=== PATIENT | male | born 1950 | race Caucasian/White ===

== ENCOUNTER 2019-11-23 08:02 | Outpatient (AMBR) | payer OTHER, MEDICAID, SELFPAY ==
--- NOTE | 2019-11-23 08:19 | PTNOTE_ITS ---
PT OP Initial Eval Patient Information Visit Reasons: post op shoulder Rotator Cuff Repair Medical Diagnosis: S46.091D Treatment Dx #1: R shoulder pain Start of Care: 11/23/19 Date of Onset: 10/29/19 Initial Assessment Subjective Pt is 69 yr old male s/p R RCR about 3 weeks ago presents to therapy without sling. He lives with his and has difficulty with ADL's that require two hands and he is not actively lifting the arm. Pain level today is 6-7/10. PMH: HTN, OA, DM, smoker Imaging: in EMR Pt goal: to reach up without pain Objective R shoulder PROM: FF: 85 deg Abd: 78 deg Erot: 45 deg Strength: NT but estimated to be 3-/5 Assessment Pt presentation consistent with post op RCR with limited ROM, strength and OH reach. PROM is limited by capsular and myofascial tightness. Pt requires skilled therapy and will be progressed per protocol and has fair/good rehab potential. Eval followed by HEP and materials. Pt encouraged to wear sling multimedia coordinator per MD. Short Term and Case Management Social Worker Goals 1. Ind with HEP 2. Improved PROM/AAROM to 155 deg FF, 150 deg abduction, ER to 90 deg 3. Pt will transition to AROM by week 8 post op, FF to 150 deg, abduction to 140 deg, ER to 80 deg 4. Pt will reach OH to tall cabinets x10 Treatment Plan 1. Manual therapy 2 Therex 3. Modalities as indicated, MHP, ice, TENS Frequency and Duration 2x a week for 8 weeks Certification Dates: 11/23/19 to 02/22/20 Office Procedures PT Procedures PT Date of Service: 11/23/19 OP PT Eval Mod Complex 30 minutes: Yes
--- NOTE | 2019-11-27 13:20 | PT.ODAYNRPT ---
PT Outpatient Daily Note Date of Service: 11/27/19 OP Daily Note Visit Reasons: post op shoulder Rotator Cuff Repair Outpatient Physical Therapy Treatment Date: 11/27/19 Subjective: Pt c/o R shoulder popping with pain sometimes. Objective: See F/S for therex Assessment: Moderate tissue irritability from first resistance to end-range with AAROM therex today. Plan: Improve shoulder ROM Length of Time (minutes) of Treatment: 30 Minutes Office Procedures PT Procedures PT Date of Service: 11/23/19 OP PT Eval Mod Complex 30 minutes: Yes PT Procedures PT Date of Service: 11/27/19 Therapeutic Exercise 30 minutes: Yes
--- NOTE | 2019-11-29 14:18 | PT.ODAYNRPT ---
PT Outpatient Daily Note Date of Service: 11/29/19 OP Daily Note Visit Reasons: post op shoulder Rotator Cuff Repair Outpatient Physical Therapy Treatment Date: 11/29/19 Subjective: Pt c/o R shoulder popping with pain sometimes and increased pain today since last visit Objective: See F/S for therex Assessment: Increased issue irritability from first resistance to end-range with AAROM therex today. Plan: Improve shoulder ROM Length of Time (minutes) of Treatment: 30 Minutes Office Procedures PT Procedures PT Date of Service: 11/23/19 OP PT Eval Mod Complex 30 minutes: Yes PT Procedures PT Date of Service: 11/27/19 Therapeutic Exercise 30 minutes: Yes PT Procedures PT Date of Service: 11/29/19 Therapeutic Exercise 30 minutes: Yes
--- NOTE | 2019-12-03 15:55 | PT.ODAYNRPT ---
PT Outpatient Daily Note Date of Service: 12/03/19 OP Daily Note Visit Reasons: post op shoulder Rotator Cuff Repair Outpatient Physical Therapy Treatment Date: 12/03/19 Subjective: Pt c/o R shoulder increased pain today since last visit Objective: See F/S for therex P x5' Assessment: Increased issue irritability from first resistance to end-range with LISETH freitas today. Plan: Improve shoulder ROM Length of Time (minutes) of Treatment: 30 Minutes Office Procedures PT Procedures PT Date of Service: 11/23/19 OP PT Eval Mod Complex 30 minutes: Yes PT Procedures PT Date of Service: 11/27/19 Therapeutic Exercise 30 minutes: Yes PT Procedures PT Date of Service: 11/29/19 Therapeutic Exercise 30 minutes: Yes PT Procedures PT Date of Service: 12/03/19 Therapeutic Exercise 30 minutes: Yes
--- NOTE | 2019-12-05 18:43 | PT.ODAYNRPT ---
PT Outpatient Daily Note Date of Service: 12/05/19 OP Daily Note Visit Reasons: post op shoulder Rotator Cuff Repair Outpatient Physical Therapy Treatment Date: 12/05/19 Subjective: Pt c/o R shoulder increased pain today since last visit Objective: See F/S for therex P x5' Assessment: Increased issue irritability from first resistance to end-range with LISETH freitas today. Plan: Improve shoulder ROM Length of Time (minutes) of Treatment: 30 Minutes Office Procedures PT Procedures PT Date of Service: 11/23/19 OP PT Eval Mod Complex 30 minutes: Yes PT Procedures PT Date of Service: 11/27/19 Therapeutic Exercise 30 minutes: Yes PT Procedures PT Date of Service: 12/05/19 Therapeutic Exercise 30 minutes: Yes PT Procedures PT Date of Service: 11/29/19 Therapeutic Exercise 30 minutes: Yes PT Procedures PT Date of Service: 12/03/19 Therapeutic Exercise 30 minutes: Yes
--- NOTE | 2019-12-10 16:54 | PT.ODAYNRPT ---
PT Outpatient Daily Note Date of Service: 12/10/19 OP Daily Note Visit Reasons: post op shoulder Rotator Cuff Repair Outpatient Physical Therapy Treatment Date: 12/10/19 Subjective: Pt c/o R shoulder pain and soreness today similar to last visit Objective: See F/S for therex MHP x5' Assessment: Continued high issue irritability from first resistance to end-range with LISETH freitas today. Plan: Improve shoulder ROM Length of Time (minutes) of Treatment: 30 Minutes Office Procedures PT Procedures PT Date of Service: 11/23/19 OP PT Eval Mod Complex 30 minutes: Yes PT Procedures PT Date of Service: 11/27/19 Therapeutic Exercise 30 minutes: Yes PT Procedures PT Date of Service: 12/05/19 Therapeutic Exercise 30 minutes: Yes PT Procedures PT Date of Service: 12/10/19 Therapeutic Exercise 30 minutes: Yes PT Procedures PT Date of Service: 11/29/19 Therapeutic Exercise 30 minutes: Yes PT Procedures PT Date of Service: 12/03/19 Therapeutic Exercise 30 minutes: Yes
--- NOTE | 2019-12-12 13:21 | PT.ODAYNRPT ---
PT Outpatient Daily Note Date of Service: 12/12/19 OP Daily Note Visit Reasons: post op shoulder Rotator Cuff Repair Outpatient Physical Therapy Treatment Date: 12/12/19 Subjective: Pt c/o R shoulder pain and soreness today similar to last visit Objective: See F/S for therex ice x5' Assessment: Continued high issue irritability from first resistance to end-range with AAROM therex today especially into abduction. Plan: Improve shoulder ROM Length of Time (minutes) of Treatment: 30 Minutes Office Procedures PT Procedures PT Date of Service: 11/23/19 OP PT Eval Mod Complex 30 minutes: Yes PT Procedures PT Date of Service: 11/27/19 Therapeutic Exercise 30 minutes: Yes PT Procedures PT Date of Service: 12/05/19 Therapeutic Exercise 30 minutes: Yes PT Procedures PT Date of Service: 12/10/19 Therapeutic Exercise 30 minutes: Yes PT Procedures PT Date of Service: 12/12/19 Therapeutic Exercise 30 minutes: Yes PT Procedures PT Date of Service: 11/29/19 Therapeutic Exercise 30 minutes: Yes PT Procedures PT Date of Service: 12/03/19 Therapeutic Exercise 30 minutes: Yes
== END 2019-12-12 23:59 | disposition home or self-care (01) ==
PROVIDERS: PCP Family Medicine; Referring Provider Family Medicine; Visit Provider Orthopaedic Surgery
DX: S46.091D Other injury of muscle(s) and tendon(s) of the rotator cuff of right shoulder, subsequent encounter (principal); M25.511 Pain in right shoulder; I10 Essential (primary) hypertension; E11.9 Type 2 diabetes mellitus without complications; F17.200 Nicotine dependence, unspecified, uncomplicated; X58.XXXD Exposure to other specified factors, subsequent encounter
CPT/HCPCS: 97110; 97162

== ENCOUNTER 2019-12-18 11:32 | Outpatient (AMBR) | payer OTHER, MEDICAID, SELFPAY ==
--- NOTE | 2019-12-18 16:42 | PT.ODAYNRPT ---
PT Outpatient Daily Note Date of Service: 12/18/19 OP Daily Note Visit Reasons: post op shoulder Outpatient Physical Therapy Treatment Date: 12/18/19 Subjective: The shoulder is still pretty sore Objective: See F/S for therex MT: PPM into shoulder FF, abd and Erot x7' Assessment: PROM limited in capsular pattern consistent with adhesions/capsulitis. Pain limits motion from first resistance to end-range. Plan: Improve ROM Length of Time (minutes) of Treatment: 30 Minutes Office Procedures PT Procedures PT Date of Service: 12/18/19 Therapeutic Exercise 30 minutes: Yes
--- NOTE | 2019-12-20 11:57 | PTNOTE_ITS ---
PT Outpatient Daily Note Date of Service: 12/20/19 OP Daily Note Visit Reasons: post op shoulder Outpatient Physical Therapy Treatment Date: 12/20/19 Subjective: Continued shoulder soreness worse at night Objective: See F/S for therex Assessment: High tissue irritability with ROM limited in capsular pattern consistent with adaptive shortening and adhesive capsulitis s/p RCR. Plan: Improve ROM Length of Time (minutes) of Treatment: 30 Minutes Office Procedures PT Procedures PT Date of Service: 12/20/19 Therapeutic Exercise 30 minutes: Yes
== END 2020-01-12 23:59 | disposition home or self-care (01) ==
PROVIDERS: PCP Orthopaedic Surgery; Referring Provider Orthopaedic Surgery; Visit Provider Orthopaedic Surgery
DX: S46.091D Other injury of muscle(s) and tendon(s) of the rotator cuff of right shoulder, subsequent encounter (principal); M25.511 Pain in right shoulder; I10 Essential (primary) hypertension; E11.9 Type 2 diabetes mellitus without complications; F17.200 Nicotine dependence, unspecified, uncomplicated; X58.XXXD Exposure to other specified factors, subsequent encounter
CPT/HCPCS: 97110

== ENCOUNTER 2020-03-12 09:03 | Outpatient (AMBR) | payer OTHER, MEDICAID, SELFPAY ==
--- NOTE | 2020-02-28 13:12 | PT.OIERPT ---
PT OP Initial Eval Patient Information Visit Reasons: right shoulder Medical Diagnosis: Z01.818 Treatment Dx #1: Right Shoulder Pain Treatment Dx #2: Right Shoulder Mobility Deficits Start of Care: 02/28/20 Date of Onset: 02/27/20 Initial Assessment Subjective Pt is a 69 y/o male s/p right shoulder ASHLIE 02/27/20 secondary to frozen shoulder. Pt recently had a rotator cuff repair in October 2019. Pt was in therapy for a few sessions. Pt still has pain (7/10) with all activities. Pt has limitation with overhead motions, lifting, chores, cooking, cleaning, and performing normal ADLs. Objective Right Shoulder AROM Flexion: 120 deg Abduction: 50 deg ER and IR: unable due to pain Right Shoulder PROM Flexion: 150 deg Abduction: 130 deg External Rotation: 50 deg Internal Rotation: 30 deg Right Shoulder MMTs: grossly 3-/5 Right Scapula MMTs: grossly 3-/5 Assessment Pt demonstrate right shoulder mobility and strength deficits consistent with s/p shoulder ASHLIE leading to decline function. Pt will benefit from physical therapy to increase ROM, strength, and work on overall stability. Short Term and Rn Coronary Care Unit Goals 1) Increase right shoulder AROM WFL in 12 wks to be able to perform overhead motions 2) Increase right shoulder PROM WFL in 12 wks to be able to perform self care activities 3) Increase right shoulder MMTs grossly to 4-/5 in 12 wks to be able to perform chores 4) Increase right scapula MMTs grossly to 4-/5 in 12 wks to be able to perform recreational activities 5) Decrease shoulder pain to 2/10 in 12 wks to be able to perform lifting activities 6) Indep with HEP Treatment Plan 1) Manual Therapy 2) Therapeutic Activities 3) Therapeutic Exercises 4) Modalities (ice, heat) Frequency and Duration 2 x wk for 12 wks Certification Dates: 02/28/20 to 05/28/20 Office Procedures PT Procedures PT Date of Service: 02/28/20 OP PT Eval Mod Complex 30 minutes: Yes
--- NOTE | 2020-02-29 09:09 | PTNOTE_ITS ---
PT Outpatient Daily Note Date of Service: 02/29/2020 OP Daily Note Visit Reasons: right shoulder Outpatient Physical Therapy Treatment Date: 02/29/20 Subjective: pt states he has been moving his shoulder a lot at home. Objective: see flow sheet. Assessment: heat prior to treatment. noted his back extensions during his p ulleys and cued him to stay straight and focus on his shoulder stretch in which he was able to understand and correct. during his wand exercises in supine noted his ROM for BUE were the same. he understands and accepts the pain with treatment as he is determined to get better. ice pack post ther ex. Plan: continue POC per PT. Length of Time (minutes) of Treatment: 30 Minutes Office Procedures PT Procedures PT Date of Service: 02/28/20 OP PT Eval Mod Complex 30 minutes: Yes PT Procedures PT Date of Service: 02/29/20 Therapeutic Exercise 30 minutes: Yes
--- NOTE | 2020-03-04 11:31 | PT.ODAYNRPT ---
PT Outpatient Daily Note Date of Service: 03/04/20 OP Daily Note Visit Reasons: right shoulder Outpatient Physical Therapy Treatment Date: 03/04/20 Subjective: Pt mention that his shoulder is sore and has been stressed due to other reasons than his shoulder. Over the weekend it was really sore. Objective: Please see flow chart for list of ther ex performed Assessment: tolerate exercises; cues to relax with shoulder stretches. Noted improve shoulder AAROM in all plane after today's session Plan: Continue with PT Length of Time (minutes) of Treatment: 40 Minutes Office Procedures PT Procedures PT Date of Service: 02/28/20 OP PT Eval Mod Complex 30 minutes: Yes PT Procedures PT Date of Service: 02/29/20 Therapeutic Exercise 30 minutes: Yes PT Procedures PT Date of Service: 03/04/20 Therapeutic Exercise 45 minutes: Yes
--- NOTE | 2020-03-10 15:45 | PT.ODAYNRPT ---
PT Outpatient Daily Note Date of Service: 03/10/20 OP Daily Note Visit Reasons: right shoulder Outpatient Physical Therapy Treatment Date: 03/10/20 Subjective: Pt's shoulder feels better but still sore. Pt notice that reaching above shoulder height is getting easier Objective: Please see flow chart for list of ther ex performed Assessment: tolerate exercises with minimal pain Plan: Continue with PT Length of Time (minutes) of Treatment: 30 Minutes Office Procedures PT Procedures PT Date of Service: 02/28/20 OP PT Eval Mod Complex 30 minutes: Yes PT Procedures PT Date of Service: 02/29/20 Therapeutic Exercise 30 minutes: Yes PT Procedures PT Date of Service: 03/04/20 Therapeutic Exercise 45 minutes: Yes PT Procedures PT Date of Service: 03/10/20 Therapeutic Exercise 30 minutes: Yes
--- NOTE | 2020-03-12 10:46 | PT.ODAYNRPT ---
PT Outpatient Daily Note Date of Service: 03/02/20 OP Daily Note Visit Reasons: right shoulder Outpatient Physical Therapy Treatment Date: 03/12/20 Subjective: Pt's shoulder is sore and stiff. Pt feels that his shoulder is getting worse since max. Pt still notice same range but pain is more lately. Objective: Please see flow chart for list of ther ex performed Assessment: improved AAROM of the shoulder and educated that pain is part of the side effect of ASHLIE and medication wearing off from the ASHLIE procedure. Less guarded with stretching today and able to increase passive range after stretching. Plan: Continue with PT Length of Time (minutes) of Treatment: 30 Minutes Office Procedures PT Procedures PT Date of Service: 02/28/20 OP PT Eval Mod Complex 30 minutes: Yes PT Procedures PT Date of Service: 02/29/20 Therapeutic Exercise 30 minutes: Yes PT Procedures PT Date of Service: 03/04/20 Therapeutic Exercise 45 minutes: Yes PT Procedures PT Date of Service: 03/10/20 Therapeutic Exercise 30 minutes: Yes PT Procedures PT Date of Service: 03/12/20 Therapeutic Exercise 30 minutes: Yes
== END 2020-03-13 23:59 | disposition home or self-care (01) ==
PROVIDERS: PCP Orthopaedic Surgery; Referring Provider Orthopaedic Surgery; Visit Provider Orthopaedic Surgery
DX: Z98.890 Other specified postprocedural states (principal); M25.511 Pain in right shoulder
CPT/HCPCS: 97110; 97162

== ENCOUNTER → 2024-01-19 | Outpatient (CLI) | payer OTHER, MEDICAID, SELFPAY ==
[2024-01-19 16:51] LABS: Basophils % (Auto) 1 % (0-2.5); Eosinophils # (Auto) 0.3 Thou/mm3 (0.0-0.5); Eosinophils % (Auto) 5 % (0-10); Hematocrit 33.9 % (41.0-53.0); Hemoglobin 10.4 g/dL (13.5-16.0); Immature Granulocytes % (Auto) 1 % (0-0); Immature Granulocytes Auto 0.04 Thou/mm3 (0.00-0.00); Lymphocytes # (Auto) 1.5 Thou/mm3 (1.0-4.8); Lymphocytes % (Auto) 28 % (10-50); Mean Corpuscular HGB Conc 30.7 g/dl (31.0-37.0); Mean Corpuscular Hemoglobin 28.9 pg (25.0-35.0); Mean Corpuscular Volume 94 fL (80-100); Monocytes # (Auto) 1.1 Thou/mm3 (0.0-0.8); Monocytes % (Auto) 21 % (0-12); Neutrophils # (Auto) 2.4 Thou/mm3 (1.8-7.7); Neutrophils % (Auto) 45 % (37-80); Nucleated Red Blood Cell % 0 /100 WBC (0); Platelet Count 266 Thou/mm3 (140-440); White Blood Count 5.3 Thou/mm3 (3.8-10.6)
[2024-01-19 17:20] LABS: Anion Gap 3 (7-16); BUN/Creatinine Ratio 13 Ratio (12-20); Blood Urea Nitrogen 24 mg/dL (9-23); Calcium 9.2 mg/dL (8.3-10.6); Carbon Dioxide 29.8 mMol/L (20.0-31.0); Chloride 109 mMol/L (98-107); Creatinine (Component) 1.8 mg/dL (0.6-1.3); Glucose 83 mg/dL (74-106); Magnesium 2.1 mg/dL (1.6-2.6); Osmolality,Calculated 286 (275-295); Potassium 4.6 mMol/L (3.4-5.1); Sodium 142 mMol/L (136-145); eGFR 39 See Note
== END | disposition home or self-care (01) ==
LOC: COPL 15:42
PROVIDERS: PCP Family Medicine; Referring Provider Internal Medicine Cardiovascular Disease; Visit Provider Internal Medicine Cardiovascular Disease
DX: I48.0 Paroxysmal atrial fibrillation (principal); I50.22 Chronic systolic (congestive) heart failure
CPT/HCPCS: 36415; 80048; 83735; 85025

== ENCOUNTER → 2024-03-22 | Outpatient (CLI) | payer OTHER, MEDICAID, SELFPAY ==
[2024-03-22 13:28] LABS: Basophils % (Auto) 1 % (0-2.5); Eosinophils # (Auto) 0.2 Thou/mm3 (0.0-0.5); Eosinophils % (Auto) 3 % (0-10); Hematocrit 34.6 % (41.0-53.0); Hemoglobin 10.9 g/dL (13.5-16.0); Immature Granulocytes % (Auto) 1 % (0-0); Immature Granulocytes Auto 0.06 Thou/mm3 (0.00-0.00); Immature Reticulocyte Fraction 20.4 % (2.3-13.4); Lymphocytes # (Auto) 1.6 Thou/mm3 (1.0-4.8); Lymphocytes % (Auto) 26 % (10-50); Mean Corpuscular HGB Conc 31.5 g/dl (31.0-37.0); Mean Corpuscular Hemoglobin 28.7 pg (25.0-35.0); Mean Corpuscular Volume 91 fL (80-100); Monocytes % (Auto) 16 % (0-12); Neutrophils # (Auto) 3.3 Thou/mm3 (1.8-7.7); Neutrophils % (Auto) 54 % (37-80); Nucleated Red Blood Cell % 0 /100 WBC (0); Platelet Count 234 Thou/mm3 (140-440); RDW Standard Deviation 56.5 fL (35.1-43.9); Reticulocyte % (Auto) 1.3 % (0.5-1.5); Reticulocyte Absolute Auto 50.2 Biln/L (25.0-75.0); Reticulocyte Hgb Content 30.7 pg (28.0-35.0); White Blood Count 6.2 Thou/mm3 (3.8-10.6)
[2024-03-22 13:57] LABS: Ferritin 57 ng/mL (10.5-307.3); Total Iron Binding Capacity 354 mcg/dL (250-425)
[2024-03-22 14:09] LABS: Iron 76 mcg/dL (65-175); Percent Iron Saturation 21 % (20-55); Unsaturated Iron Binding 278 (225-295)
== END | disposition home or self-care (01) ==
LOC: COPL 12:54
PROVIDERS: PCP Family Medicine; Referring Provider Specialist; Visit Provider Specialist
DX: D50.0 Iron deficiency anemia secondary to blood loss (chronic) (principal)
CPT/HCPCS: 36415; 82728; 83540; 83550; 85025; 85046

== ENCOUNTER → 2024-04-19 | Outpatient (CLI) | payer OTHER, MEDICAID, SELFPAY ==
[2024-04-19 15:14] LABS: Amphetamine/Methamp Scrn,U Negative (Negative); Barbiturate Screen,Urine Negative (Negative); Benzodiazepines Screen,Urine Negative (Negative); Benzoylecgonine Screen, Ur Negative (Negative); Fentanyl Screen,Urine Negative (Negative); Opiate Screen,Urine Positive (Negative); THC Screen,Urine Negative (Negative)
== END | disposition home or self-care (01) ==
LOC: COPL 13:50 → SLDO 13:50
PROVIDERS: Referring Provider Family Medicine; Visit Provider Family Medicine
DX: Z79.891 Long term (current) use of opiate analgesic (principal)
CPT/HCPCS: 80307

== ENCOUNTER → 2024-06-18 | Outpatient (CLI) | payer OTHER, MEDICAID, SELFPAY ==
[2024-06-18 11:20] LABS: Basophils % (Auto) 1 % (0-2.5); Eosinophils # (Auto) 0.1 Thou/mm3 (0.0-0.5); Eosinophils % (Auto) 1 % (0-10); Hematocrit 34.4 % (41.0-53.0); Hemoglobin 10.8 g/dL (13.5-16.0); Immature Granulocytes % (Auto) 2 % (0-0); Immature Granulocytes Auto 0.12 Thou/mm3 (0.00-0.00); Lymphocytes # (Auto) 1.6 Thou/mm3 (1.0-4.8); Lymphocytes % (Auto) 25 % (10-50); Mean Corpuscular HGB Conc 31.4 g/dl (31.0-37.0); Mean Corpuscular Hemoglobin 29.6 pg (25.0-35.0); Mean Corpuscular Volume 94 fL (80-100); Monocytes # (Auto) 0.7 Thou/mm3 (0.0-0.8); Monocytes % (Auto) 12 % (0-12); Neutrophils # (Auto) 3.8 Thou/mm3 (1.8-7.7); Neutrophils % (Auto) 60 % (37-80); Nucleated Red Blood Cell % 0 /100 WBC (0); Platelet Count 236 Thou/mm3 (140-440); RDW Standard Deviation 59.7 fL (35.1-43.9); Red Blood Count 3.65 Miln/mm3 (4.50-5.90); White Blood Count 6.4 Thou/mm3 (3.8-10.6)
[2024-06-18 11:40] LABS: Sed Rate (ESR) 21 mm/hr (0-20)
[2024-06-18 12:30] LABS: Uric Acid 10.2 mg/dL (3.7-9.2)
== END | disposition home or self-care (01) ==
PROVIDERS: PCP Family Medicine; Referring Provider Family Medicine; Visit Provider Family Medicine
DX: E11.65 Type 2 diabetes mellitus with hyperglycemia (principal)
CPT/HCPCS: 36415; 84550; 85025; 85652

== ENCOUNTER → 2024-07-19 | Outpatient (CLI) | payer OTHER, MEDICAID, SELFPAY ==
[2024-07-19 11:01] LABS: Basophils # (Auto) 0.1 Thou/mm3 (0.0-0.2); Basophils % (Auto) 1 % (0-2.5); Eosinophils # (Auto) 0.1 Thou/mm3 (0.0-0.5); Eosinophils % (Auto) 2 % (0-10); Hematocrit 37.8 % (41.0-53.0); Hemoglobin 11.8 g/dL (13.5-16.0); Immature Granulocytes % (Auto) 1 % (0-0); Immature Granulocytes Auto 0.05 Thou/mm3 (0.00-0.00); Lymphocytes # (Auto) 1.4 Thou/mm3 (1.0-4.8); Lymphocytes % (Auto) 21 % (10-50); Mean Corpuscular HGB Conc 31.2 g/dl (31.0-37.0); Mean Corpuscular Hemoglobin 29.8 pg (25.0-35.0); Mean Corpuscular Volume 96 fL (80-100); Monocytes # (Auto) 1.1 Thou/mm3 (0.0-0.8); Monocytes % (Auto) 16 % (0-12); Neutrophils # (Auto) 4.2 Thou/mm3 (1.8-7.7); Neutrophils % (Auto) 61 % (37-80); Nucleated Red Blood Cell % 0 /100 WBC (0); Platelet Count 219 Thou/mm3 (140-440); RDW Standard Deviation 61.5 fL (35.1-43.9); Red Blood Count 3.96 Miln/mm3 (4.50-5.90)
== END | disposition home or self-care (01) ==
PROVIDERS: PCP Family Medicine; Referring Provider Specialist; Visit Provider Specialist
DX: D50.0 Iron deficiency anemia secondary to blood loss (chronic) (principal)
CPT/HCPCS: 36415; 85025

== ENCOUNTER → 2024-07-26 | Outpatient (CLI) | payer OTHER, MEDICAID, SELFPAY ==
[2024-07-26 11:33] LABS: Uric Acid 10.4 mg/dL (3.7-9.2)
== END | disposition home or self-care (01) ==
PROVIDERS: PCP Family Medicine; Referring Provider Family Medicine; Visit Provider Family Medicine
DX: E79.0 Hyperuricemia without signs of inflammatory arthritis and tophaceous disease (principal)
CPT/HCPCS: 36415; 84550

== ENCOUNTER → 2024-08-28 | Outpatient (CLI) | payer OTHER, MEDICAID, SELFPAY ==
[2024-08-28 09:57] LABS: Anion Gap 7 (7-16); BUN/Creatinine Ratio 12 Ratio (12-20); Blood Urea Nitrogen 21 mg/dL (9-23); Calcium 8.8 mg/dL (8.3-10.6); Carbon Dioxide 30.6 mMol/L (20.0-31.0); Chloride 108 mMol/L (98-107); Creatinine (Component) 1.8 mg/dL (0.6-1.3); Glucose 189 mg/dL (74-106); Magnesium 1.7 mg/dL (1.6-2.6); Osmolality,Calculated 298 (275-295); Potassium 4.3 mMol/L (3.4-5.1); Sodium 146 mMol/L (136-145); eGFR 39 See Note
[2024-08-28 09:59] LABS: Amphetamine/Methamp Scrn,U Negative (Negative); Barbiturate Screen,Urine Negative (Negative); Benzodiazepines Screen,Urine Negative (Negative); Benzoylecgonine Screen, Ur Negative (Negative); Fentanyl Screen,Urine Negative (Negative); Opiate Screen,Urine Positive (Negative); THC Screen,Urine Negative (Negative)
== END | disposition home or self-care (01) ==
LOC: COPL 08:52
PROVIDERS: PCP Family Medicine; Referring Provider Internal Medicine Cardiovascular Disease; Visit Provider Family Medicine
DX: M47.26 Other spondylosis with radiculopathy, lumbar region (principal); J44.1 Chronic obstructive pulmonary disease with (acute) exacerbation; I50.20 Unspecified systolic (congestive) heart failure
CPT/HCPCS: 36415; 80048; 80307; 83735

== ENCOUNTER → 2024-10-23 | Outpatient (CLI) | payer OTHER, MEDICAID, SELFPAY ==
[2024-10-23 11:33] LABS: Basophils # (Auto) 0.0 Thou/mm3 (0.0-0.2); Basophils % (Auto) 1 % (0-2.5); Eosinophils # (Auto) 0.2 Thou/mm3 (0.0-0.5); Eosinophils % (Auto) 3 % (0-10); Hematocrit 37.1 % (41.0-53.0); Hemoglobin 11.6 g/dL (13.5-16.0); Immature Granulocytes Auto 0.01 Thou/mm3 (0.00-0.00); Lymphocytes # (Auto) 1.5 Thou/mm3 (1.0-4.8); Lymphocytes % (Auto) 28 % (10-50); Mean Corpuscular HGB Conc 31.3 g/dl (31.0-37.0); Mean Corpuscular Hemoglobin 30.4 pg (25.0-35.0); Mean Corpuscular Volume 97 fL (80-100); Monocytes # (Auto) 0.7 Thou/mm3 (0.0-0.8); Monocytes % (Auto) 14 % (0-12); Neutrophils # (Auto) 3.0 Thou/mm3 (1.8-7.7); Neutrophils % (Auto) 55 % (37-80); Nucleated Red Blood Cell # 0.00 Thou/mm3 (0.00-0.00); Nucleated Red Blood Cell % 0 /100 WBC (0); Platelet Count 201 Thou/mm3 (140-440); RDW Standard Deviation 57.0 fL (35.1-43.9); Red Blood Count 3.82 Miln/mm3 (4.50-5.90); White Blood Count 5.4 Thou/mm3 (3.8-10.6)
== END | disposition home or self-care (01) ==
LOC: COPL 11:01
PROVIDERS: PCP Family Medicine; Referring Provider Specialist; Visit Provider Specialist
DX: D50.0 Iron deficiency anemia secondary to blood loss (chronic) (principal)
CPT/HCPCS: 36415; 85025

== ENCOUNTER → 2024-12-21 | Outpatient (CLI) | payer OTHER, MEDICAID, SELFPAY ==
[2024-12-21 11:33] LABS: Basophils # (Auto) 0.1 Thou/mm3 (0.0-0.2); Basophils % (Auto) 1 % (0-2.5); Eosinophils # (Auto) 0.3 Thou/mm3 (0.0-0.5); Eosinophils % (Auto) 5 % (0-10); Hematocrit 36.8 % (41.0-53.0); Hemoglobin 11.3 g/dL (13.5-16.0); Immature Granulocytes Auto 0.05 Thou/mm3 (0.00-0.00); Lymphocytes # (Auto) 1.3 Thou/mm3 (1.0-4.8); Lymphocytes % (Auto) 23 % (10-50); Mean Corpuscular HGB Conc 30.7 g/dl (31.0-37.0); Mean Corpuscular Hemoglobin 29.7 pg (25.0-35.0); Mean Corpuscular Volume 97 fL (80-100); Monocytes # (Auto) 0.7 Thou/mm3 (0.0-0.8); Monocytes % (Auto) 12 % (0-12); Neutrophils # (Auto) 3.4 Thou/mm3 (1.8-7.7); Neutrophils % (Auto) 59 % (37-80); Nucleated Red Blood Cell # 0.00 Thou/mm3 (0.00-0.00); Nucleated Red Blood Cell % 0 /100 WBC (0); Platelet Count 233 Thou/mm3 (140-440); RDW Standard Deviation 61.0 fL (35.1-43.9); Red Blood Count 3.81 Miln/mm3 (4.50-5.90); White Blood Count 5.8 Thou/mm3 (3.8-10.6)
== END | disposition home or self-care (01) ==
LOC: COPL 10:11
PROVIDERS: PCP Family Medicine; Referring Provider Specialist; Visit Provider Specialist
DX: D50.0 Iron deficiency anemia secondary to blood loss (chronic) (principal)
CPT/HCPCS: 36415; 85025

== ENCOUNTER → 2024-12-28 | Outpatient (CLI) | payer OTHER, MEDICAID, SELFPAY ==
[2024-12-28 12:26] LABS: Amphetamine/Methamp Scrn,U Negative (Negative); Barbiturate Screen,Urine Negative (Negative); Benzodiazepines Screen,Urine Negative (Negative); Benzoylecgonine Screen, Ur Negative (Negative); Fentanyl Screen,Urine Negative (Negative); Opiate Screen,Urine Positive (Negative); THC Screen,Urine Negative (Negative)
== END | disposition home or self-care (01) ==
LOC: SLDO 11:03
PROVIDERS: PCP Family Medicine; Referring Provider Family Medicine; Visit Provider Family Medicine
DX: M19.90 Unspecified osteoarthritis, unspecified site (principal); M25.512 Pain in left shoulder
CPT/HCPCS: 80307

== ENCOUNTER 2025-02-01 14:28 | Inpatient (IN) | payer OTHER, MEDICAID, MEDICARE, SELFPAY ==
[2025-02-01] VITALS (9 sets, daily range): BP systolic 136–177; BP diastolic 67–89; PULSE 36–94; RESP 14–24; TEMP 36.2–37.4; O2SAT 94–97; BMI 42.3
--- NOTE | 2025-02-01 15:11 | EKG_ITS ---
[facility] Test Date: 2025-02-01 Pat Name: FELIPE DE LEON Department: Room: - Gender: Male Stitcher Utility: : 1950 Requested By: Blas Garcia Order Number: [id number] Reading MD: Blas Garcia Measurements Intervals [place] Rate: 58 P: 64 [place]: 203 QRS: -46 QRSD: 169 T: 68 QT: 442 QTc: 437 Interpretive Statements SINUS BRADYCARDIA WITH OCCASIONAL VENTRICULAR PREMATURE COMPLEXES LEFT AXIS DEVIATION [QRS AXIS < -30] LEFT BUNDLE BRANCH BLOCK [120+ ms QRS DURATION, 80+ ms Q/S IN V1/V2, 85+ ms R IN I/aVL/V5/V6] Compared to ECG 10/26/2023 09:48:20 Ventricular premature complex(es) now present Left-axis deviation now present /store/S0/[id number]/ecg/[id number].pdf
--- NOTE | 2025-02-01 15:13 | XR_ITS ---
Examination: CT brain head without contrast. 2-D sagittal coronal reconstructions Date and time of exam: February 01, 2025, 1524 hours INDICATIONS: Onset dizziness beginning this morning CTDI: vol (mGy): 61.6 DLP: (mGycm): 1209 Technique: Multiple CT axial sections of the brain have been obtained, 5 mm slice thickness. Contrast has not been administered. 2-D sagittal, coronal reconstructions have been obtained Low dose protocols were performed. One or more of the following dose reduction techniques were used; automated exposure control, adjustment of the mA and/or KV according to patient size, use of iterative reconstruction technique. Findings: No significant ventricular enlargement. Intra-axial or extra-axial hemorrhage density is not seen. No mass effect or midline shift Basal cisterns are not remarkable. Fourth ventricle is midline. Cranial vault intact. Impression: Negative for acute hemorrhage, mass effect or midline shift
--- NOTE | 2025-02-01 15:13 | XR_ITS ---
EXAMINATION: PA chest single view TECHNIQUE: Upright PA chest single view Date and time: February 01, 2025, 1532 hours INDICATIONS: Chest pain today. FINDINGS: Mild prominence left ventricle Mild prominent central pulmonary vasculature. No lobar pneumonia or pulmonary edema. Moderate osteopenia IMPRESSION: Mild prominence central pulmonary vasculature
--- NOTE | 2025-02-01 15:14 | PD.EDRME ---
Rapid Medical Screening Exam E Arrival date/time: 02/01/25 14:28 74-year-old male with a history of hypertension, A-fib, COPD presents to the emergency room with a chief complaint of dizziness and lightheadedness x 2 days I have greeted and performed a focused initial assessment of this patient. A comprehensive ED assessment and evaluation of the patient, analysis of all test results, and completion of the medical decision making process will be conducted by additional ED providers. Chief Complaint: Dizziness Time Seen by Provider: 02/01/25 14:47 Vital signs: Vital Signs Temperature 98.5 F 02/01/25 14:47 Pulse Rate 62 02/01/25 14:47 Respiratory Rate 18 02/01/25 14:47 Blood Pressure 155/83 H 02/01/25 14:47 Pulse Oximetry (%) 96 02/01/25 14:47 Oxygen Delivery Method Room Air 02/01/25 14:47 Vital signs reviewed by provider: Yes Exam: Clear bilateral lung sounds Regular rhythm S1 and S2 GCS of 15 Clinical Impression: A-fib/anemia/vertigo
[2025-02-01 15:52] LABS: Collection Type, Urine Clean Catch; WBC,Urine 0 /hpf (0-5)
[2025-02-01 15:57] LABS: Basophils # (Auto) 0.0 Thou/mm3 (0.0-0.2); Basophils % (Auto) 0 % (0-2.5); Eosinophils # (Auto) 0.0 Thou/mm3 (0.0-0.5); Eosinophils % (Auto) 1 % (0-10); Hematocrit 38.2 % (41.0-53.0); Hemoglobin 11.7 g/dL (13.5-16.0); Immature Granulocytes Auto 0.02 Thou/mm3 (0.00-0.00); Lymphocytes # (Auto) 1.1 Thou/mm3 (1.0-4.8); Lymphocytes % (Auto) 19 % (10-50); Mean Corpuscular HGB Conc 30.6 g/dl (31.0-37.0); Mean Corpuscular Hemoglobin 29.3 pg (25.0-35.0); Mean Corpuscular Volume 96 fL (80-100); Monocytes # (Auto) 0.7 Thou/mm3 (0.0-0.8); Monocytes % (Auto) 12 % (0-12); Neutrophils # (Auto) 4.0 Thou/mm3 (1.8-7.7); Neutrophils % (Auto) 68 % (37-80); Nucleated Red Blood Cell # 0.00 Thou/mm3 (0.00-0.00); Nucleated Red Blood Cell % 0 /100 WBC (0); Platelet Count 228 Thou/mm3 (140-440); RDW Standard Deviation 59.7 fL (35.1-43.9); Red Blood Count 4.00 Miln/mm3 (4.50-5.90); White Blood Count 5.8 Thou/mm3 (3.8-10.6)
[2025-02-01 16:02] LABS: Bilirubin,Urine Negative (Negative); Blood,Urine Negative (Negative); Clarity,Urine Clear (Clear/Hazy); Color,Urine Lt-Yellow (Lt Yel-Yel); Culture Indicated,Urine Not Indicated; Glucose, Urine Negative (Negative); Ketones,Urine Negative (Negative); Leukocyte Esterase,Urine Negative (Negative); Nitrite,Urine Negative (Negative); PH,Urine 7.0 (5.0-7.0); Protein,Urine Trace (Neg - Trace); RBC,Urine 2 /hpf (0-3); Specific Gravity,Urine 1.018 (1.001-1.035); Squamous Epithelial Cell,Urine < 1 /hpf (0-5); Urobilinogen,Urine Negative mg/dL (0.0-1.0)
[2025-02-01 16:09] LABS: Amphetamine/Methamp Scrn,U Negative (Negative); Barbiturate Screen,Urine Negative (Negative); Benzodiazepines Screen,Urine Negative (Negative); Benzoylecgonine Screen, Ur Negative (Negative); Fentanyl Screen,Urine Negative (Negative); Opiate Screen,Urine Positive (Negative); THC Screen,Urine Negative (Negative)
[2025-02-01 16:10] LABS: INR 1.0 (0.9-1.3); Partial Thromboplastin Time 29.3 Seconds (22.0-36.0); Prothrombin Time 10.3 Seconds (9.0-12.2)
[2025-02-01 16:12] LABS: B-Type Natriuretic Peptide 260 pg/mL (0-100)
[2025-02-01 16:20] LABS: Alanine Aminotransferase 15 U/L (10-49); Albumin, Serum 4.9 gm/dL (3.4-4.8); Albumin/Globulin Ratio 2.0 (1.2-2.2); Alkaline Phosphatase 68 U/L (46-116); Anion Gap 8 (7-16); Aspartate Amino Transferase 17 U/L (0-34); BUN/Creatinine Ratio 14 Ratio (12-20); Bilirubin,Total 0.9 mg/dL (0.3-1.2); Blood Urea Nitrogen 22 mg/dL (9-23); Calcium 9.4 mg/dL (8.3-10.6); Calcium (Corrected) 9.4 mg/dL (8.5-10.1); Carbon Dioxide 28.0 mMol/L (20.0-31.0); Chloride 107 mMol/L (98-107); Creatinine (Component) 1.6 mg/dL (0.6-1.3); Estimated Creatinine Clearance 55.8 mL/min (>60); Free T4 (Free Thyroxine) 1.34 ng/dL (0.89-1.76); Globulin 2.4 gm/dL (2.3-3.5); Glucose 118 mg/dL (74-106); Magnesium 1.9 mg/dL (1.6-2.6); Osmolality,Calculated 289 (275-295); Potassium 5.2 mMol/L (3.4-5.1); Sodium 143 mMol/L (136-145); Thyroid Stimulating Hormone 2.57 uIU/mL (0.55-4.78); Total Protein 7.3 gm/dL (5.7-8.2); eGFR 45 See Note
--- NOTE | 2025-02-01 16:22 | PRELIM_ITS ---
CT scan of the head without intravenous contrast (axial sections with sagittal and coronal reformats) February 01, 2025 1524 hours Clinical history: dizziness Comparison: No prior study is available for comparison. Findings: There is no evidence of intracranial hemorrhage, mass effect or midline shift. There are periventricular white matter hypodensities, compatible with chronic small vessel ischemia. There is mild volume loss. The calvarium is unremarkable. The mastoid air cells and the visualized paranasal sinuses are clear. Impression: No evidence of intracranial hemorrhage, mass effect or midline shift. Periventricular chronic small vessel ischemia and volume loss. Report Electronically Signed By: Alvaro Bowen 02/01/2025 4:21:59 PM [EST]
[2025-02-01 16:27] LABS: Troponin I 0.103 ng/mL (0.0-0.045)
--- NOTE | 2025-02-01 16:49 | EDNOTE_ITS ---
ED Dizzyness RME/HPI General Chief Complaint: Dizziness Stated Complaint: DIZZINESS, AND SOB Time Seen by Provider: 02/01/25 14:47 Arrival date/time: 02/01/25 14:28 RME / HPI RME / HPI Narrative: 02/01/25 14:28 74-year-old male with a history of hypertension, A-fib, COPD presents to the emergency room with a chief complaint of dizziness and lightheadedness x 2 days I have greeted and performed a focused initial assessment of this patient. A comprehensive ED assessment and evaluation of the patient, analysis of all test results, and completion of the medical decision making process will be conducted by additional ED providers. DR. DINH MAIN ED EVALUATION 74 year old male with history of hypertension, diabetes, hyperlipidemia, asthma presents to the ED for evaluation of dizziness beginning after waking at 07:00 AM today. States as he tried to get out of bed he noted the room was spinning. States he got up to walk to the restroom and I was falling all over the place . States after using the restroom he took his medications where shortly after he vomited. Patient additionally complains of cold sweats, nausea, vomiting, feeling short of breath, and substernal chest pain. Patient mentioned last night he ate a pot a beans and went to bed with some abdominal discomfort. Exam: Clear bilateral lung sounds Regular rhythm S1 and S2 GCS of 15 Impression: A-fib/anemia/vertigo Related Data Home Medications ?Medication ?Instructions ?Recorded ?Confirmed furosemide 40 mg tablet 40 mg PO QDAY ##30 02/04/14 02/26/20 albuterol sulfate 90 mcg/actuation 2 puff inhalation Q 4HR PRN Wheezing 04/20/18 02/26/20 aerosol inhaler (Ventolin HFA) benazepril 40 mg tablet 40 mg PO QDAY 04/20/1810/09 pravastatin 40 mg tablet 40 mg PO QDAY 04/20/1810/09 pantoprazole 40 mg tablet,delayed 40 mg PO QDAY 10/10/23 release hydrocodone 5 mg-acetaminophen 325 1 tab PO Q6H PRN Pa in 10/10/23 10/10/23 mg tablet Previous Rx's ?Medication ?Instructions ?Recorded zolpidem 10 mg tablet (Ambien) 5 mg (1/2 x 10 mg) PO H S PRN Sleep 10/11/23 14 days #0 tabs apixaban 5 mg tablet 5 mg PO BID #60 tabs 4 dapagliflozin propanediol 5 mg 10 mg (2 x 5 mg) PO QAM #60 tabs 10/14/23 tablet metformin 1,000 mg tablet 500 mg (1/2 x 1,000 mg) PO B ID 30 10/14/23 days #60 tabs Allergies Allergy/AdvReac Type Severity Reaction Status Date / Time No Known Allergies Allergy Verified 02/01/25 14:31 Review of Systems Review of Systems Systems Reviewed: All systems reviewed, normal except as documented Past Medical History Past Medical History CARDIAC: Positive Cardiac Disorders, Hypercholesterolemia, Aneurysm and Hypertension RESPIRATORY: Positive Asthma, Smoking and Tobacco Use GASTROINTESTINAL: Positive Gastrointestinal Disorders, Hepatitis (hep b), Ulcer, Hiatal Hernia (TAKES MED) and Gastroesophageal Reflux Disease GENITOURINARY: Positive Genitourinary Disorders, Kidney Stones (NO EDNA) and Benign Prostatic Hyperplasia MUSCULOSKELETAL: Positive Musculoskeletal Disorders (muscle weakness), Arthritis, Degenerative Disk Disease and Fractures (right knee with surgery) ENT: Positive Cataracts ENDOCRINE: Positive Endocrine Disorders and Diabetes Mellitus Type 2 HEMATOLOGIC: Positive Blood Disorders and Anemia (TAKES IRON) OTHER HISTORY: Positive Measles Family History FAMILY HISTORY: Positive Family Cardiac Disorders and Family Surgery (FATHER,MOTHER,BROTHER,SISTER) Surgical History SURGICAL: Positive Eye Surgery (cataract), Joint Replacement, Amputation (LEFT POINTER FINGER UPPER) and Vasectomy Social History SMOKING STATUS: Never smoker SUBSTANCE USE: does not use ED Exam Narrative Physical exam: Constitutional: Awake, alert, nontoxic, no acute distress HEENT: Normocephalic, atraumatic, extraocular movements intact. Neck: Supple CV: Regular rate and rhythm, no murmurs/rubs/gallops, no chest tenderness Lungs: Clear to auscultation BL, no respiratory distress. Abd: Soft, epigastric tenderness to palpation, ND, no HSM noted to palpation Extremities: No deformities, mild swelling to bilateral lower extremities Neuro: AAOx3, CN 2-12 GIBL, no acute neuro deficit noted. Skin: Warm, dry, intact Course Course Course Narrative: 1719h: I spoke with hospitalist team C for admission. Quality Measures none Orders Category Date Time Status Admit to Inpatient Status Routine Admission 02/01/25 17:23 Active Patient Condition Routine Admission 02/01/25 17:23 Ordered Bedside Blood Glucose ACHS Care 02/01/25 17:58 Active Bedside COVID-19 Antigen Test NOW Care 02/01/25 18:12 Active COVID-19 Screening Questionnaire NOW Care 02/01/25 17:19 Active Account Advisor now Care 02/01/25 18:03 Active Continuous Pulse Oximetry QSHIFT Care 02/01/25 18:03 Active Decision to Admit X1 Care 02/01/25 17:18 Completed EKG (ED ONLY) *Do not use* NOW Care 02/01/25 15:11 Completed MRI Screening NOW Care 02/01/25 18:05 Active NPO NOW Care 02/01/25 17:24 Active Neuro Check Q4H Care 02/01/25 18:04 Active Notify provider NEEDED Care 02/01/25 17:23 Active Notify provider NEEDED Care 02/01/25 18:03 Active Nurse Swallow Screen x1 Care 02/01/25 18:03 Active Diet NPO (NOW) Diet 02/01/25 17:24 Active CA echo doppler complete Stat Exams 02/01/25 17:[address] head/brain wo con Stat Exams 02/01/25 15:13 Taken EKG (ED Only) Stat Exams 02/01/25 15:11 Draft MR head/brain w con Stat Exams 02/01/25 Ordered XR chest 1V portable Stat Exams 02/01/25 15:13 Taken A1C [Glycohemoglobin w (eAG)] AM DRAW Lab 02/02/25 05:00 Ordered B-Type Natriuretic Peptide Stat Lab 02/01/25 15:33 Completed CBC AM DRAW Lab 02/02/25 05:00 Ordered CBC AM DRAW Lab 02/03/25 05:00 Ordered CBC AM DRAW Lab 02/04/25 05:00 Ordered CBC Stat Lab 02/01/25 15:33 Completed Comprehensive Metabolic Panel AM DRAW Lab 02/02/25 05:00 Ordered Comprehensive Metabolic Panel AM DRAW Lab 02/03/25 05:00 Ordered Comprehensive Metabolic Panel AM DRAW Lab 02/04/25 05:00 Ordered Comprehensive Metabolic Panel Stat Lab 02/01/25 15:33 Completed Drug Screen,Urine Stat Lab 02/01/25 15:45 Completed Free T4 (Free Thyroxine) Stat Lab 02/01/25 15:33 Completed Lipid Panel AM DRAW Lab 02/02/25 05:00 Ordered Magnesium AM DRAW Lab 02/02/25 05:00 Ordered Magnesium Stat Lab 02/01/25 15:33 Completed Partial Thromboplastin Time Stat Lab 02/01/25 15:33 Completed Phosphorous AM DRAW Lab 02/02/25 05:00 Ordered Prothrombin Time with INR Stat Lab 02/01/25 15:33 Completed Renal Function Panel Stat Lab 02/01/25 17:43 Completed TSH [Thyroid Stimulating Hormone] Stat Lab 02/01/25 15:33 Completed Troponin I Stat Lab 02/01/25 15:33 Completed Troponin I Stat Lab 02/01/25 17:43 Completed Urinalysis, C/S if Indicated Stat Lab 02/01/25 15:45 Completed Acetaminophen Tab [Tylenol Tab] Med 02/01/25 17:23 Active 650 mg PO Q6H PRN Apixaban [Eliquis] Med 02/01/25 21:00 Active 5 mg PO BID Aspirin Chew Med 02/01/25 17:10 Discontinued 324 mg PO X1 ONE Aspirin [Ecotrin] Med 02/02/25 09:00 Active 81 mg PO DAILY Atorvastatin Calcium [Lipitor] Med 02/01/25 18:00 Active 10 mg PO DAILY Dextrose 50% Syr [D50w Syringe Abboject] Med 02/01/25 17:58 Active 25 ml IV Q15MIN PRN Dextrose 50% Syr [D50w Syringe Abboject] Med 02/01/25 17:58 Active 50 ml IV Q15MIN PRN Enoxaparin [Lovenox] Med 02/01/25 17:10 Discontinued 100 mg SC X1 ONE Enoxaparin [Lovenox] Med 02/02/25 09:00 Discontinued 40 mg SC QDAY Glucagon Inj Med 02/01/25 17:58 Active 1 mg IM Q15MIN PRN INSULIN LISPRO (AdmeLOG) [HumaLOG] Med 02/02/25 07:30 Active See Protocol SC AC Ondansetron Inj [Zofran Inj] Med 02/01/25 18:03 Active 4 mg IVP Q4HR PRN Code Status Routine Oth 02/01/25 17:23 Ordered EKG (RT) Stat RT 02/01/25 17:26 Ordered Oxygen Delivery NOW RT 02/01/25 18:03 Active Oxygen Delivery PRN RT 02/01/25 17:23 Active Referral Supervisor Pipelines NOW 02/01/25 18:03 Active Vital Signs Vital signs: Vital Signs Temperature 98.5 F 02/01/25 14:47 Pulse Rate 62 02/01/25 14:47 Respiratory Rate 18 02/01/25 14:47 Blood Pressure 155/83 H 02/01/25 14:47 Pulse Oximetry (%) 96 02/01/25 14:47 Oxygen Delivery Method Room Air 02/01/25 14:47 Pulse ox is 96% on room air which is adequate. Dizziness MDM Narrative MDM Narrative:: Eugenia Sawant am scribing for and in the presence of Dr. Dinh. Patient data External records reviewed:: [facility] previous records Clinical information provided by:: patient Social determinants that could affect healthcare access:: none Patient has the following chronic illnesses:: hypertension, diabetes, hyperlipidemia and asthma How is presenting disease/condition affected by chronic disease/condition?: exacerbated by Evaluation data The following diagnostics were reviewed and interpreted by me:: lab results, radiology exam(s) and EKG tracing(s) (EKG @ 15:11h, interpreted by me, sinus bradycardia with occasional PACs, left axis deviation, no STEMI. ) Lab and/or radiology exams considered but not ordered:: None Interpretation Summary: Ordering Physician: Date of Service: Procedure(s): Accession Number(s): cc: ~ CT scan of the head without intravenous contrast (axial sections with sagittal and coronal reformats) February 01, 2025 1524 hours Clinical history: dizziness Comparison: No prior study is available for comparison. Findings: There is no evidence of intracranial hemorrhage, mass effect or midline shift. There are periventricular white matter hypodensities, compatible with chronic small vessel ischemia. There is mild volume loss. The calvarium is unremarkable. The mastoid air cells and the visualized paranasal sinuses are clear. Impression: No evidence of intracranial hemorrhage, mass effect or midline shift. Periventricular chronic small vessel ischemia and volume loss. Report Electronically Signed By: Alvaro Bowen 02/01/2025 4:21:59 PM [EST] Medications / Prescriptions Medications or Prescriptions considered but not ordered:: None Medication administrations:: Medication Administration History Acetaminophen (Acetaminophen 325 Mg Tablet) 650 mg PO Q6H PRN PRN Reason: Fever >101.5 Stop: 03/03/25 17:22 Apixaban (Apixaban 2.5 Mg Tablet) 5 mg PO BID [facility] Stop: 03/04/25 09:00 Aspirin (Aspirin Ec 81 Mg Tabec) 81 mg PO DAILY [facility] Stop: 03/04/25 08:59 Atorvastatin Calcium (Atorvastatin Calcium 10 Mg Tablet) 10 mg PO DAILY [facility] Stop: 03/03/25 17:59 Dextrose (Dextrose 50%-Water Inj 50 Ml Syringe) 25 ml IV Q15MIN PRN PRN Reason: BG 50-70 responsive npo pt Stop: 03/03/25 17:57 Dextrose (Dextrose 50%-Water Inj 50 Ml Syringe) 50 ml IV Q15MIN PRN PRN Reason: BG <50 OR BG <70 & pt unresponsive Stop: 03/03/25 17:57 Glucagon (Glucagon Inj 1 Mg Vial) 1 mg IM Q15MIN PRN PRN Reason: BG <70, and no IV access Insulin Human Lispro (Insulin Lispro (Admelog) 1 Unit/0.01 Ml Unit) 0 unit SC AC [facility]; Protocol Stop: 03/04/25 07:29 Ondansetron HCl (Ondansetron Inj 2 Mg/Ml Inj 2 Ml) 4 mg IVP Q4HR PRN PRN Reason: NAUSEA OR VOMITING Stop: 03/03/25 18:02 Discontinued Medications Aspirin (Aspirin 81 Mg Chew) 324 mg PO X1 ONE Stop: 02/01/25 17:11 Last Admin: 02/01/25 17:18 Dose: 324 mg Documented By: VL Enoxaparin Sodium (Enoxaparin Sod Inj 100 Mg/Ml Syringe) 100 mg SC X1 ONE Stop: 02/01/25 17:11 Last Admin: 02/01/25 17:18 Dose: 100 mg Documented By: VL Enoxaparin Sodium (Enoxaparin Sod Inj 40 Mg/0.4 Ml Syringe) 40 mg SC QDAY [facility] Stop: 02/16/25 08:59 See above Consultations Consultation(s) initiated? (list below): Yes Diagnosis Dizziness Differential Diagnosis: benign paroxysmal positional vertigo, orthostatic hypotension, vertebral basilar insufficiency, cerebrovascular accident and transient cerebral ischemia Most likely diagnosis given after review of the tests above:: NSTEMI Admission Indicated Admission indicated?: indicated Admission Request Was there a request for admission?: Yes Admission Attestation Admission request attestation: Discussed case with [] from Hospitalist service regarding admission. Discussed patients ED course, exam findings, labs, and radiology results. The Hospitalist [agrees,declines] to accept the patient for admission. Disposition Plan Disposition Plan: Admit Critical Care Time Critical Care Time Total Critical Care Time (min.): 32 Attestation: The high probability of a clinically significant, sudden or life threatening deterioration required my full and direct attention, intervention and personal management. The aggregate critical care time was [32] minutes. This time is in addition to time spent performing reported procedures but includes the following: [x] Data Review and interpretation [x] Patient assessment and monitoring of vital signs [x] Documentation [x] Medication orders and management Discharge Plan Plan Patient Disposition: Admit Acute Care w/in Hospital Prescriptions/Referrals Prescriptions/Med Rec: No Action furosemide 40 MG tablet 40 mg PO QDAY Qty: 30 pravastatin 40 mg Tablet 40 mg PO QDAY benazepril 40 mg Tablet 40 mg PO QDAY albuterol sulfate [Ventolin HFA] 90 mcg/actuation Hfa Aerosol Inhaler 2 puff INHALATION Q4HR PRN (Reason: Wheezing) pantoprazole 40 mg Tablet,Delayed Release (Dr/Ec) 40 mg PO QDAY hydrocodone-acetaminophen 5-325 mg Tablet 1 tab PO Q6H PRN (Reason: Pain) zolpidem [Ambien] 10 mg Tablet 5 mg PO HS PRN (Reason: Sleep) 14 Days Qty: 0 0RF dapagliflozin propanediol 5 mg Tablet 10 mg PO QAM Qty: 60 0RF metformin 1,000 mg Tablet 500 mg PO BID 30 Days Qty: 60 0RF apixaban 5 mg tablet 5 mg PO BID Qty: 60 0RF Problem List Clinical Impression: Non-ST elevation AR (NSTEMI) Patient/Caregiver Discharge Instructions Print Language: Korean Stand Alone Forms: [facility] Award Info., Patient Portal Info Letter
[2025-02-01] MEDS: ENOXAPARIN SOD INJ 100 MG/ML SYRINGE SC (17:18)
[2025-02-01] MEDS: ASPIRIN 81 MG CHEW 324 MG PO (17:18)
--- NOTE | 2025-02-01 17:26 | EKG_ITS ---
[facility] Test Date: 2025-02-01 Pat Name: FELIPE DE LEON Department: Room: - Gender: Male [employer] Associate: : 1950 Requested By: Rafiq Mauro Order Number: [id number] Reading MD: Rafiq Mauro Measurements Intervals [place] Rate: 63 P: 38 MD: 209 QRS: -43 QRSD: 169 T: 76 QT: 446 QTc: 460 Interpretive Statements SINUS RHYTHM LEFT AXIS DEVIATION [QRS AXIS < -30] LEFT BUNDLE BRANCH BLOCK [120+ ms QRS DURATION, 80+ ms Q/S IN V1/V2, 85+ ms R IN I/aVL/V5/V6] Compared to ECG 02/01/2025 15:11:44 Sinus bradycardia no longer present Ventricular premature complex(es) no longer present /store/S0/[id number]/ecg/[id number].pdf
--- NOTE | 2025-02-01 17:54 | ESHP_ITS ---
<Statement entered by Surinder Ansari MD - 02/12/25 08:31> I reviewed above note and agree with findings and plans. I have also personally examined the patient with medicine team and went over assessment and plan with medical team including college intern and resident physician. Documentation for date of: 02/01/25 [facility] History of Present Illness History of present illness: HPI: 74-year-old male with a past medical history of hypertension, diabetes, hyperlipidemia and asthma who presented to the ED on 02/01/2025 with dizziness, shortness of breath, and vision changes. Earlier in the day the patient endorsed blurry vision, chest pressure, felt dizzy, and had an episode of vomiting and an episode of diarrhea. Patient has never had these symptoms before. He had no focal neurological deficits on initial examination. He was found to have an elevated troponin. Patient was admitted for elevated troponins and stroke rule out. ED course: * Significant vitals: BP 155/83. * Significant labs: Troponin 0.103, BNP 260. * Imaging: EKG significant for left bundle branch block, no acute ST segment changes.. CT head and chest x-ray performed, both pending read. * Patient was given one-time dose of aspirin 325 mg p.o. and enoxaparin 100 mg subcutaneously. History: * Past medical history: As stated above in HPI * Surgical history: Per the patient, several miscellaneous surgeries, nothing recent * Social history: Denies smoking * Allergies: No known drug allergies Home medications: * Albuterol, apixaban, benazepril, dapagliflozin, furosemide, hydrocodone, metformin, pantoprazole, pravastatin, zolpidem CODE STATUS: Full code Review of Systems Review of Systems Narrative Review of Systems: Review of Systems: * General: Denies fevers, chills. * HEENT: Admits to blurry vision. Admits to dizziness. Denies headache, congestion, or sore throat. * Cardiac: Endorses chest heaviness, shortness of breath, denies chest pain or palpitations. * Pulmonary: Denies shortness of breath or cough. * GI: 1 episode of vomiting, 1 episode of diarrhea. Denies, melena, or hematochezia. * : Denies dysuria, hematuria, frequency, or urgency. * MSK: Denies pain in the extremities, joints, or myalgias. * Neuro: Denies weakness, numbness, or speech difficulty. Exam Vital Signs Temp Pulse Resp BP Pulse Ox O2 Del Method 98.5 F 72 19 172/89 H 95 Room Air 02/01/25 17:06 02/01/25 17:06 02/01/25 17:06 02/01/25 17:06 02/01/25 17:06 02/01/25 17:06 Narrative Exam General: Obese man. Awake and in no acute distress. Conversational and non- toxic appearing. Neurologic: GCS 15. Alert and oriented x3, no gross neurological deficit, and patient able to move all 4 extremities. HEENT: Normocephalic, atraumatic, mucous membranes moist. Pupils reactive to light. Heart: Regular rate and rhythm, normal S1 and S2, no murmurs. Lungs: Clear to auscultation bilaterally with no wheezing or crackles. Abdomen: Soft, nondistended, nontender, positive bowel sounds. No guarding or rebound tenderness. Extremities: No edema. 2+ radial and dorsalis pedis pulses bilaterally. Skin: Warm. Dry. No rash or ecchymoses. Results: Labs 02/02/25 05:42 02/02/25 05:42 Labs: Short CBC 02/01/25 Range/Units 15:33 WBC 5.8 (3.8-10.6) Thou/mm3 Hgb 11.7 L (13.5-16.0) g/dL Hct 38.2 L (41.0-53.0) % Plt Count 228 (140-440) Thou/mm3 BMP 02/01/25 15:33 Sodium 143 Potassium 5.2 H Chloride 107 Carbon Dioxide 28.0 BUN 22 Creatinine 1.6 H Glucose 118 H Calcium 9.4 Cardiac Enzymes 02/01/25 Range/Units 15:33 Troponin I 0.103 H* (0.0-0.045) ng/mL Liver Function 02/01/25 Range/Units 15:33 Total Bilirubin 0.9 (0.3-1.2) mg/dL AST 17 (0-34) U/L ALT 15 (10-49) U/L Alkaline Phosphatase 68 (46-116) U/L Albumin 4.9 H (3.4-4.8) gm/dL Urine 02/01/25 Range/Units 15:45 Urine Color Lt-Yellow (Lt Yel-Yel) Urine Clarity Clear (Clear/Hazy) Urine pH 7.0 (5.0-7.0) Ur Specific [place] 1.018 (1.001-1.035) Urine Protein Trace (Neg - Trace) Urine Glucose (UA) Negative (Negative) Quality Measures Quality Measures none Advance care planning discussed with:: patient Medications Home Medications and Allergies Home Medications ?Medication ?Instructions ?Recorded ?Confirmed ?Type furosemide 40 mg tablet 40 mg PO QDAY ##30 02/04/14 02/02/25 History albuterol sulfate 90 mcg/actuation 2 puff inhalation Q 4HR PRN Wheezing 04/20/18 02/02/25 History aerosol inhaler (Ventolin HFA) benazepril 40 mg tablet 40 mg PO QDAY 04/20/1802/02 History pravastatin 40 mg tablet 40 mg PO QDAY 04/20/1802/02 History pantoprazole 40 mg tablet,delayed 40 mg PO QDAY 02/02/25 History release hydrocodone 5 mg-acetaminophen 325 1 tab PO Q6H PRN Pa in 10/10/23 02/02/25 History mg tablet bumetanide 1 mg tablet 1 mg PO QDAY 02/02/25 History carvedilol 3.125 mg tablet 3.125 mg PO BID 02/02/25 History febuxostat 80 mg tablet 80 mg PO QDAY 02/02/2502/02 History gabapentin 300 mg capsule 300 mg PO TID 02/02/2502/02 History sacubitril 49 mg-valsartan 51 mg 49.51 tab PO BID 01/1302/02/25 History tablet (Entresto) Allergies Allergy/AdvReac Type Severity Reaction Status Date / Time No Known Allergies Allergy Verified 02/01/25 14:31 Visit Medications Acetaminophen (Acetaminophen 325 Mg Tablet) 650 mg PO Q6H PRN PRN Reason: Fever >101.5 Stop: 03/03/25 17:22 Enoxaparin Sodium (Enoxaparin Sod Inj 40 Mg/0.4 Ml Syringe) 40 mg SC QDAY ARTURO Stop: 02/16/25 08:59 Discontinued Medications Aspirin (Aspirin 81 Mg Chew) 324 mg PO X1 ONE Stop: 02/01/25 17:11 Last Admin: 02/01/25 17:18 Dose: 324 mg Enoxaparin Sodium (Enoxaparin Sod Inj 100 Mg/Ml Syringe) 100 mg SC X1 ONE Stop: 02/01/25 17:11 Last Admin: 02/01/25 17:18 Dose: 100 mg Assessment & Plan Plan Summary: 74-year-old male with a past medical history of hypertension, diabetes, hyperlipidemia and asthma who presented to the ED on 02/01/2025 with dizziness shortness of breath, and vision changes. Was found to have an elevated troponin and a left bundle branch block. He was admitted for elevated troponins and stroke rule out. #Elevated troponins #Left bundle branch block #NSTEMI type II * Troponins 0.103 on arrival, up trended to 0.106 * EKG showed left bundle branch block, no acute ST segment changes. LBBB appears old * Patient had chest heaviness and shortness of breath the day of presentation, he denied chest pain Plan: * Will trend troponins * Will repeat EKG * Echo ordered #Dizziness secondary to #Benign positional vertigo versus #TIA versus #CVA * Patient endorsed vision changes and dizziness prior to presentation, has since resolved * Consider TIA, vertigo * Tele neurology was not consulted by ER given patient was out of window Plan: * MRI ordered * CT head read pending * Started aspirin and Plavix * N.p.o., aspiration precautions * Neurochecks every 4 hours #Hypertension Stage 2 * Patient takes Benazepril, Metoprolol at home Plan: * Pending med rec, consider restarting home meds #Heart failure EF 35-40% * Patient takes benazepril, entresto, furosemide at home * Patient does not appear to be fluid overloaded on exam, negative for crackles on auscultation, negative peripheral edema Plan: * Pending med rec, consider restarting home medications * Echo ordered * As needed labetalol #MAUREEN on CKD? * Cr 1.6 on arrival, similar values in the past Plan: * No direct intervention for now #Hyperlipidemia * Patient takes pravastatin at home Plan: * Pending lipid panel and med rec #Asthma * Patient uses rescue inhaler at home Plan: * Pending med rec * Monitor for shortness of breath, DuoNebs if needed #Caz-dtwxlic-[id number] diabetes mellitus * Patient takes metformin 500 mg at home Plan: * Pending med rec * Insulin sliding scale Hospital Maintenance: DVT ppx: Aspirin, Eliquis Diet: N.p.o., pending swallow screen IV lines: Peripheral Code status: Full code Dispo: Telemetry monitoring floor, trending troponins, pending MRI, pending CT head read. Patient was seen and discussed with my attending physician Dr. Elan STEVENS. Rafiq Mauro DO PGY-1.
--- NOTE | 2025-02-01 17:54 | PD.RESHP ---
Documentation for date of: 02/01/25 [facility] History of Present Illness History of present illness: HPI: 74-year-old male with a past medical history of hypertension, diabetes, hyperlipidemia and asthma who presented to the ED on 02/01/2025 with dizziness, shortness of breath, and vision changes. Earlier in the day the patient endorsed blurry vision, chest pressure, felt dizzy, and had an episode of vomiting and an episode of diarrhea. Patient has never had these symptoms before. He had no focal neurological deficits on initial examination. He was found to have an elevated troponin. Patient was admitted for elevated troponins and stroke rule out. ED course: Significant vitals: BP 155/83. Significant labs: Troponin 0.103, BNP 260. Imaging: EKG significant for left bundle branch block, no acute ST segment changes.. CT head and chest x-ray performed, both pending read. Patient was given one-time dose of aspirin 325 mg p.o. and enoxaparin 100 mg subcutaneously. History: Past medical history: As stated above in HPI Surgical history: Per the patient, several miscellaneous surgeries, nothing recent Social history: Denies smoking Allergies: No known drug allergies Home medications: Albuterol, apixaban, benazepril, dapagliflozin, furosemide, hydrocodone, metformin, pantoprazole, pravastatin, zolpidem CODE STATUS: Full code Review of Systems Review of Systems Narrative Review of Systems: Review of Systems: General: Denies fevers, chills. HEENT: Admits to blurry vision. Admits to dizziness. Denies headache, congestion, or sore throat. Cardiac: Endorses chest heaviness, shortness of breath, denies chest pain or palpitations. Pulmonary: Denies shortness of breath or cough. GI: 1 episode of vomiting, 1 episode of diarrhea. Denies, melena, or hematochezia. : Denies dysuria, hematuria, frequency, or urgency. MSK: Denies pain in the extremities, joints, or myalgias. Neuro: Denies weakness, numbness, or speech difficulty. Exam Vital Signs Temp Pulse Resp BP Pulse Ox O2 Del Method 98.5 F 72 19 172/89 H 95 Room Air 02/01/25 17:06 02/01/25 17:06 02/01/25 17:06 02/01/25 17:06 02/01/25 17:06 02/01/25 17:06 Narrative Exam General: Obese man. Awake and in no acute distress. Conversational and non-toxic appearing. Neurologic: GCS 15. Alert and oriented x3, no gross neurological deficit, and patient able to move all 4 extremities. HEENT: Normocephalic, atraumatic, mucous membranes moist. Pupils reactive to light. Heart: Regular rate and rhythm, normal S1 and S2, no murmurs. Lungs: Clear to auscultation bilaterally with no wheezing or crackles. Abdomen: Soft, nondistended, nontender, positive bowel sounds. No guarding or rebound tenderness. Extremities: No edema. 2+ radial and dorsalis pedis pulses bilaterally. Skin: Warm. Dry. No rash or ecchymoses. Results: Labs 02/02/25 05:42 02/02/25 05:42 Labs: Short CBC 02/01/25 Range/Units 15:33 WBC 5.8 (3.8-10.6) Thou/mm3 Hgb 11.7 L (13.5-16.0) g/dL Hct 38.2 L (41.0-53.0) % Plt Count 228 (140-440) Thou/mm3 BMP 02/01/25 15:33 Sodium 143 Potassium 5.2 H Chloride 107 Carbon Dioxide 28.0 BUN 22 Creatinine 1.6 H Glucose 118 H Calcium 9.4 Cardiac Enzymes 02/01/25 Range/Units 15:33 Troponin I 0.103 H* (0.0-0.045) ng/mL Liver Function 02/01/25 Range/Units 15:33 Total Bilirubin 0.9 (0.3-1.2) mg/dL AST 17 (0-34) U/L ALT 15 (10-49) U/L Alkaline Phosphatase 68 (46-116) U/L Albumin 4.9 H (3.4-4.8) gm/dL Urine 02/01/25 Range/Units 15:45 Urine Color Lt-Yellow (Lt Yel-Yel) Urine Clarity Clear (Clear/Hazy) Urine pH 7.0 (5.0-7.0) Ur Specific [place] 1.018 (1.001-1.035) Urine Protein Trace (Neg - Trace) Urine Glucose (UA) Negative (Negative) Quality Measures Quality Measures none Advance care planning discussed with:: patient Medications Home Medications and Allergies Home Medications ?Medication ?Instructions ?Recorded ?Confirmed ?Type furosemide 40 mg tablet 40 mg PO QDAY ##30 02/04/14 02/02/25 History albuterol sulfate 90 mcg/actuation 2 puff inhalation Q4HR PRN Wheezing 04/20/18 02/02/25 History aerosol inhaler (Ventolin HFA) benazepril 40 mg tablet 40 mg PO QDAY 04/20/18 02/02/25 History pravastatin 40 mg tablet 40 mg PO QDAY 04/20/18 02/02/25 History pantoprazole 40 mg tablet,delayed 40 mg PO QDAY 10/26/19 02/02/25 History release hydrocodone 5 mg-acetaminophen 325 1 tab PO Q6H PRN Pain 10/10/23 02/02/25 History mg tablet bumetanide 1 mg tablet 1 mg PO QDAY 02/02/25 02/02/25 History carvedilol 3.125 mg tablet 3.125 mg PO BID 02/02/25 02/02/25 History febuxostat 80 mg tablet 80 mg PO QDAY 02/02/25 02/02/25 History gabapentin 300 mg capsule 300 mg PO TID 02/02/25 02/02/25 History sacubitril 49 mg-valsartan 51 mg 49.51 tab PO BID 02/02/25 02/02/25 History tablet (Entresto) Allergies Allergy/AdvReac Type Severity Reaction Status Date / Time No Known Allergies Allergy Verified 02/01/25 14:31 Visit Medications Acetaminophen (Acetaminophen 325 Mg Tablet) 650 mg PO Q6H PRN PRN Reason: Fever >101.5 Stop: 03/03/25 17:22 Enoxaparin Sodium (Enoxaparin Sod Inj 40 Mg/0.4 Ml Syringe) 40 mg SC QDAY ARTURO Stop: 02/16/25 08:59 Discontinued Medications Aspirin (Aspirin 81 Mg Chew) 324 mg PO X1 ONE Stop: 02/01/25 17:11 Last Admin: 02/01/25 17:18 Dose: 324 mg Enoxaparin Sodium (Enoxaparin Sod Inj 100 Mg/Ml Syringe) 100 mg SC X1 ONE Stop: 02/01/25 17:11 Last Admin: 02/01/25 17:18 Dose: 100 mg Assessment & Plan Plan Summary: 74-year-old male with a past medical history of hypertension, diabetes, hyperlipidemia and asthma who presented to the ED on 02/01/2025 with dizziness shortness of breath, and vision changes. Was found to have an elevated troponin and a left bundle branch block. He was admitted for elevated troponins and stroke rule out. #Elevated troponins #Left bundle branch block #NSTEMI type II Troponins 0.103 on arrival, up trended to 0.106 EKG showed left bundle branch block, no acute ST segment changes. LBBB appears old Patient had chest heaviness and shortness of breath the day of presentation, he denied chest pain Plan: Will trend troponins Will repeat EKG Echo ordered #Dizziness secondary to #Benign positional vertigo versus #TIA versus #CVA Patient endorsed vision changes and dizziness prior to presentation, has since resolved Consider TIA, vertigo Tele neurology was not consulted by ER given patient was out of window Plan: MRI ordered CT head read pending Started aspirin and Plavix N.p.o., aspiration precautions Neurochecks every 4 hours #Hypertension Stage 2 Patient takes Benazepril, Metoprolol at home Plan: Pending med rec, consider restarting home meds #Heart failure EF 35-40% Patient takes benazepril, entresto, furosemide at home Patient does not appear to be fluid overloaded on exam, negative for crackles on auscultation, negative peripheral edema Plan: Pending med rec, consider restarting home medications Echo ordered As needed labetalol #MAUREEN on CKD? Cr 1.6 on arrival, similar values in the past Plan: No direct intervention for now #Hyperlipidemia Patient takes pravastatin at home Plan: Pending lipid panel and med rec #Asthma Patient uses rescue inhaler at home Plan: Pending med rec Monitor for shortness of breath, DuoNebs if needed #Wwp-fkpwicg-gxcljlndu diabetes mellitus Patient takes metformin 500 mg at home Plan: Pending med rec Insulin sliding scale Hospital Maintenance: DVT ppx: Aspirin, Eliquis Diet: N.p.o., pending swallow screen IV lines: Peripheral Code status: Full code Dispo: Telemetry monitoring floor, trending troponins, pending MRI, pending CT head read. Patient was seen and discussed with my attending physician Dr. Elan STEVENS. Rafiq Mauro DO PGY-1.
[2025-02-01 18:16] LABS: Albumin, Serum 4.8 gm/dL (3.4-4.8); Anion Gap 8 (7-16); BUN/Creatinine Ratio 13 Ratio (12-20); Blood Urea Nitrogen 20 mg/dL (9-23); Calcium 9.1 mg/dL (8.3-10.6); Calcium (Corrected) 9.1 mg/dL (8.5-10.1); Carbon Dioxide 27.0 mMol/L (20.0-31.0); Chloride 107 mMol/L (98-107); Creatinine (Component) 1.5 mg/dL (0.6-1.3); Estimated Creatinine Clearance 59.5 mL/min (>60); Glucose 108 mg/dL (74-106); Osmolality,Calculated 286 (275-295); Phosphorous 2.3 mg/dL (2.4-5.1); Potassium 4.8 mMol/L (3.4-5.1); Sodium 142 mMol/L (136-145); eGFR 49 See Note
[2025-02-01 18:17] LABS: Troponin I 0.106 ng/mL (0.0-0.045)
[2025-02-01] MEDS: ATORVASTATIN CALCIUM 10 MG TABLET PO (18:28)
[2025-02-01] MEDS: APIXABAN 2.5 MG TABLET 5 MG PO (21:57)
[2025-02-01 23:45] LABS: Troponin I 0.104 ng/mL (0.0-0.045)
[2025-02-02] VITALS: BP 150/73; PULSE 51; PULSE 66; RESP 18; TEMP 36.4; O2SAT 92
[2025-02-02 04:00] VITALS: BP 155/74; PULSE 56; PULSE 61; RESP 18; TEMP 36.3; O2SAT 93
[2025-02-02 05:29] VITALS: BMI 42.8
[2025-02-02 06:23] LABS: Basophils # (Auto) 0.0 Thou/mm3 (0.0-0.2); Basophils % (Auto) 1 % (0-2.5); Eosinophils # (Auto) 0.1 Thou/mm3 (0.0-0.5); Eosinophils % (Auto) 1 % (0-10); Hematocrit 34.2 % (41.0-53.0); Hemoglobin 10.8 g/dL (13.5-16.0); Immature Granulocytes Auto 0.02 Thou/mm3 (0.00-0.00); Lymphocytes # (Auto) 1.2 Thou/mm3 (1.0-4.8); Lymphocytes % (Auto) 28 % (10-50); Mean Corpuscular HGB Conc 31.6 g/dl (31.0-37.0); Mean Corpuscular Hemoglobin 29.8 pg (25.0-35.0); Mean Corpuscular Volume 94 fL (80-100); Monocytes # (Auto) 0.8 Thou/mm3 (0.0-0.8); Monocytes % (Auto) 19 % (0-12); Neutrophils # (Auto) 2.2 Thou/mm3 (1.8-7.7); Neutrophils % (Auto) 51 % (37-80); Nucleated Red Blood Cell # 0.00 Thou/mm3 (0.00-0.00); Nucleated Red Blood Cell % 0 /100 WBC (0); Platelet Count 191 Thou/mm3 (140-440); RDW Standard Deviation 57.5 fL (35.1-43.9); Red Blood Count 3.63 Miln/mm3 (4.50-5.90); White Blood Count 4.3 Thou/mm3 (3.8-10.6)
[2025-02-02 06:51] LABS: Alanine Aminotransferase 13 U/L (10-49); Albumin, Serum 4.4 gm/dL (3.4-4.8); Albumin/Globulin Ratio 1.8 (1.2-2.2); Alkaline Phosphatase 60 U/L (46-116); Anion Gap 10 (7-16); Aspartate Amino Transferase 14 U/L (0-34); BUN/Creatinine Ratio 13 Ratio (12-20); Bilirubin,Total 1.0 mg/dL (0.3-1.2); Blood Urea Nitrogen 18 mg/dL (9-23); Calcium 9.0 mg/dL (8.3-10.6); Calcium (Corrected) 9.0 mg/dL (8.5-10.1); Carbon Dioxide 26.8 mMol/L (20.0-31.0); Cardiac Risk Estimate 3.9 RATIO (4.0-6.7); Chloride 107 mMol/L (98-107); Cholesterol 120 mg/dL (132-200); Creatinine (Component) 1.4 mg/dL (0.6-1.3); Estimated Creatinine Clearance 64.2 mL/min (>60); Globulin 2.4 gm/dL (2.3-3.5); Glucose 106 mg/dL (74-106); HDL Cholesterol 31 mg/dL (40-60); LDL Cholesterol,Calculated 55 mg/dL (0-130); Magnesium 1.8 mg/dL (1.6-2.6); Osmolality,Calculated 288 (275-295); Phosphorous 2.7 mg/dL (2.4-5.1); Potassium 4.4 mMol/L (3.4-5.1); Sodium 144 mMol/L (136-145); Total Protein 6.8 gm/dL (5.7-8.2); Triglycerides 172 mg/dL (30-150); eGFR 53 See Note
[2025-02-02 06:54] LABS: Glucose Estimated Average 137 mg/dL (80-131); Hemoglobin A1C 6.4 % Hgb (4.8-6.0)
[2025-02-02 08:00] VITALS: BP 193/83; PULSE 59; PULSE 69; RESP 22; TEMP 36.2; O2SAT 95
[2025-02-02 08:55] VITALS: PULSE 54; RESP 18; RESP 95
[2025-02-02 08:56] VITALS: BP 193/83; PULSE 69
[2025-02-02] MEDS: APIXABAN 2.5 MG TABLET 5 MG PO (08:57)
[2025-02-02] MEDS: ASPIRIN EC 81 MG TABEC PO (08:57)
--- NOTE | 2025-02-02 10:44 | PD.RESCONSUL ---
HPI Data of Consult Requesting Physician: Surinder Ansari MD Admitting Provider: Surinder Ansari MD Attending Provider: Surinder Ansari MD Primary Care Provider: Carloz Lebron MD Consult Narrative History of present illness: Patient is 73-year-old male with past medical history of hyperlipidemia, hypertension, A-fib on Coreg and Eliquis, HFrEF 30 to 35%, GDMT(Entresto, Coreg, Farxiga), mip-vptzlrn-rbrezkykz diabetes,2.7 x 2.5 cm early abdominal aortic aneurysm in 01/04/2023, obesity, 50 pack year former smoker, Rotator cuff tear, asthma, osteopenia with degenerative disc disease and C5-C7 and L5-S1 presented on 02/01/2025 to [facility] with chief complaints of blurry vision, chest pressure, dizziness, following episode of vomiting and diarrhea. Per chart review the patient never experienced similar symptoms in the past. Patient denied any recent sick contact, any unusual activities. Patient stated that he has been compliant with medication, and denied any focal neurological deficit. Patient denied any shortness of breath, palpitation, PND, constipation, hematemesis or hematochezia. ED course Vitals BP 155/83, HR 62, RR 15, temperature 98.5, patient saturating 96% on room air. Labs CBC showed anemia with hemoglobin of 11.7, hematocrit 38.2, CMP showed creatinine of 1.4, BUN of 18, eGFR of 53 which appears to be at baseline since 2023, A1c 6.4, BNP 260 troponin 0.103, lipid panel triglycerides 172, cholesterol 120, LDL 55, HDL 31 cholesterol/HDL ratio 3.9 Imaging: EKG initial showed sinus bradycardia with occasional VPCs, LBBB, QTc 437. No acute ST changes. Chest x-ray showed mild prominence of central pulmonary vasculature no PNA Head CT was negative for acute hemorrhage, mass effect or midline shift. In ED patient was given aspirin loading dose with Lovenox 100 mg subacute and was admitted for stroke rule out and elevated troponin Cardiology was consulted for further evaluation In 10/11/2023 patient was admitted to hospital for new onset A-fib with RVR along with new onset severe systolic congestive heart failure with EF of 30 to 35% noted on echo on 10/08/2023. Patient at that time discharge at [facility] with ADIEL, Farxiga, beta-marya, for A-fib patient started on Eliquis and amiodarone along with metoprolol.With clear instructions to follow-up outpatient with cardiology Echo: 10/08/2023 Normal LV size. Severe systolic dysfunction. Hypokinesis mid anterior septal, mid anterior , lateral. Estimated EF 30-35% Mild RV dilated. Normal RV function. The acending aorta is mildly dilated, 3.9cm. Mild aortic root dilated, 4.2cm No aortic regurgitation Past medical history as above Past surgical history right knee repair, bilateral rotator cuff repair, cataract surgery amputation left first finger, vasectomy Allergies NKDA Meds: acitively taking Eliquis 5 mg twice daily, Bumex 1 mg daily, Coreg 3.125 mg twice daily, gabapentin 300 mg 3 times daily, metformin 500 mg twice daily, pantoprazole 40 mg daily, pravastatin 40 mg daily, Entresto 49-51 mg twice daily, zolpidem 10 mg tablets at bedtime as needed FamHx: Significant for CAD in father who passed at 81 after multiple heart attacks. CAD in older brother who passed at 70 due to heart attack Social: denies drinking, former smoker with 50 pack year history, no drug use information was taken per chart review and notes from previous admissions cc:: cc: Surinder Ansari MD Review of Systems Review of Systems Narrative Review of Systems: wasn't able to perform , patient left AMA Exam Vital Signs Temp Pulse Resp BP Pulse Ox O2 Del Method 97.2 F 69 18 193/83 H 95 Room Air 02/02/25 08:00 02/02/25 08:56 02/02/25 08:55 02/02/25 08:56 02/02/25 08:00 02/02/25 08:00 Narrative Exam Patient was not in a room. patient left AMA, Results Labs 02/02/25 05:42 02/02/25 05:42 Labs: Short CBC 02/01/25 02/02/25 Range/Units 15:33 05:42 WBC 5.8 4.3 (3.8-10.6) Thou/mm3 Hgb 11.7 L 10.8 L (13.5-16.0) g/dL Hct 38.2 L 34.2 L (41.0-53.0) % Plt Count 228 191 D (140-440) Thou/mm3 BMP 02/01/25 02/01/25 02/02/25 15:33 17:43 05:42 Sodium 143 142 144 Potassium 5.2 H 4.8 4.4 Chloride 107 107 107 Carbon Dioxide 28.0 27.0 26.8 BUN 22 20 18 Creatinine 1.6 H 1.5 H 1.4 H Glucose 118 H 108 H 106 Calcium 9.4 9.1 9.0 Cardiac Enzymes 02/01/25 02/01/25 02/01/25 Range/Units 15:33 17:43 22:46 Troponin I 0.103 H* 0.106 H* 0.104 H* (0.0-0.045) ng/mL Liver Function 02/01/25 02/01/25 02/02/25 Range/Units 15:33 17:43 05:42 Total Bilirubin 0.9 1.0 (0.3-1.2) mg/dL AST 17 14 (0-34) U/L ALT 15 13 (10-49) U/L Alkaline Phosphatase 68 60 (46-116) U/L Albumin 4.9 H 4.8 4.4 (3.4-4.8) gm/dL Urine 02/01/25 Range/Units 15:45 Urine Color Lt-Yellow (Lt Yel-Yel) Urine Clarity Clear (Clear/Hazy) Urine pH 7.0 (5.0-7.0) Ur Specific [place] 1.018 (1.001-1.035) Urine Protein Trace (Neg - Trace) Urine Glucose (UA) Negative (Negative) Quality Measures Quality Measures none Advance care planning discussed with:: other Medications Home Medications and Allergies Home Medications ?Medication ?Instructions ?Recorded ?Confirmed ?Type furosemide 40 mg tablet 40 mg PO QDAY ##30 02/04/14 02/02/25 History albuterol sulfate 90 mcg/actuation 2 puff inhalation Q4HR PRN Wheezing 04/20/18 02/02/25 History aerosol inhaler (Ventolin HFA) benazepril 40 mg tablet 40 mg PO QDAY 04/20/18 02/02/25 History pravastatin 40 mg tablet 40 mg PO QDAY 04/20/18 02/02/25 History pantoprazole 40 mg tablet,delayed 40 mg PO QDAY 10/26/19 02/02/25 History release hydrocodone 5 mg-acetaminophen 325 1 tab PO Q6H PRN Pain 10/10/23 02/02/25 History mg tablet bumetanide 1 mg tablet 1 mg PO QDAY 02/02/25 02/02/25 History carvedilol 3.125 mg tablet 3.125 mg PO BID 02/02/25 02/02/25 History febuxostat 80 mg tablet 80 mg PO QDAY 02/02/25 02/02/25 History gabapentin 300 mg capsule 300 mg PO TID 02/02/25 02/02/25 History sacubitril 49 mg-valsartan 51 mg 49.51 tab PO BID 02/02/25 02/02/25 History tablet (Entresto) Allergies Allergy/AdvReac Type Severity Reaction Status Date / Time No Known Allergies Allergy Verified 02/01/25 14:31 Visit Medications Acetaminophen (Acetaminophen 325 Mg Tablet) 650 mg PO Q6H PRN PRN Reason: Fever >101.5 Stop: 03/03/25 17:22 Apixaban (Apixaban 2.5 Mg Tablet) 5 mg PO BID [facility] Stop: 03/04/25 09:00 Last Admin: 02/02/25 08:57 Dose: 5 mg Aspirin (Aspirin Ec 81 Mg Tabec) 81 mg PO DAILY ARTURO Stop: 03/04/25 08:59 Last Admin: 02/02/25 08:57 Dose: 81 mg Atorvastatin Calcium (Atorvastatin Calcium 20 Mg Tablet) 40 mg PO HS [facility] Stop: 03/04/25 20:59 Dapagliflozin (Dapagliflozin Propanediol 5 Mg Tablet) 10 mg PO QAM [facility] Stop: 03/04/25 10:44 Dextrose (Dextrose 50%-Water Inj 50 Ml Syringe) 25 ml IV Q15MIN PRN PRN Reason: BG 50-70 responsive npo pt Stop: 03/03/25 17:57 Dextrose (Dextrose 50%-Water Inj 50 Ml Syringe) 50 ml IV Q15MIN PRN PRN Reason: BG <50 OR BG <70 & pt unresponsive Stop: 03/03/25 17:57 Glucagon (Glucagon Inj 1 Mg Vial) 1 mg IM Q15MIN PRN PRN Reason: BG <70, and no IV access Insulin Human Lispro (Insulin Lispro (Admelog) 1 Unit/0.01 Ml Unit) 0 unit SC [facility]; Protocol Stop: 03/04/25 07:29 Last Admin: 02/02/25 07:06 Dose: Not Given Non-Formulary Medication (Sacubitril-Valsartan [Entresto]) 49.51 tab PO BID [facility] Stop: 03/04/25 10:44 Ondansetron HCl (Ondansetron Inj 2 Mg/Ml Inj 2 Ml) 4 mg IVP Q4HR PRN PRN Reason: NAUSEA OR VOMITING Stop: 03/03/25 18:02 Discontinued Medications Amlodipine Besylate (Amlodipine Besylate 5 Mg Tablet) 10 mg PO X1 ONE Stop: 02/02/25 07:46 Last Admin: 02/02/25 08:56 Dose: 10 mg Aspirin (Aspirin 81 Mg Chew) 324 mg PO X1 ONE Stop: 02/01/25 17:11 Last Admin: 02/01/25 17:18 Dose: 324 mg Atorvastatin Calcium (Atorvastatin Calcium 10 Mg Tablet) 10 mg PO DAILY ARTURO Stop: 03/03/25 17:59 Last Admin: 02/01/25 18:28 Dose: 10 mg Enoxaparin Sodium (Enoxaparin Sod Inj 100 Mg/Ml Syringe) 100 mg SC X1 ONE Stop: 02/01/25 17:11 Last Admin: 02/01/25 17:18 Dose: 100 mg Enoxaparin Sodium (Enoxaparin Sod Inj 40 Mg/0.4 Ml Syringe) 40 mg SC QDAY [facility] Stop: 02/16/25 08:59 Assessment & Plan Plan Patient is 73-year-old male with past medical history of hyperlipidemia, hypertension, A-fib on Coreg and Eliquis, HFrEF 30 to 35%, GDMT(Entresto, Coreg, Farxiga), soi-ewyqxgy-mmwicnoyx diabetes,2.7 x 2.5 cm early abdominal aortic aneurysm in 01/04/2023, obesity, 50 pack year former smoker, Rotator cuff tear, asthma, osteopenia with degenerative disc disease and C5-C7 and L5-S1 was admitted for stroke rule out and elevated troponin. 1. Elevated troponin 2. Non-STEMI type II demand ischemia 3. HFrEF 30 to 35%, NYHA class IIIc 4. A-fib currently controlled 5.Hypertension 6.Hyperlipidemia 7.History of xxu-sgknlcy-dspnjjggw diabetes 8 Ascending aortic and aortic root dilatation(mild aortic root 4.2 cm, ascending aorta 3.9 cm) 9. CVA/TIA? 10.Dizziness/chest pressure symptoms 11.Tobacco use/[id number] history Echo: 10/08/2023 Normal LV size. Severe systolic dysfunction. Hypokinesis mid anterior septal, mid anterior , lateral. Estimated EF 30-35% Mild RV dilated. Normal RV function. The acending aorta is mildly dilated, 3.9cm. Mild aortic root dilated, 4.2cm No aortic regurgitation 1. Elevated troponin / Type II NSTEMI (Demand Ischemia) Troponin mildly elevated (0.103 ->0.106 ->0.104) without significant delta and without ischemic EKG changes. Presentation with dizziness/chest pressure likely related to demand ischemia in the setting of bradycardia, hypotension, chronic LBBB, and underlying HFrEF. Reccomendations. Troponin downtrended Continue telemetry monitoring. Optimize hemodynamics; avoid excessive beta-blockade given sinus bradycardia. Treat underlying triggers (volume status, BP, arrhythmia). Repeat echo Patient will need schemic evaluation (coronary CTA or LHC) given extensive CAD risk factors (HTN, HLD, 50+ pack-years, family history, HFrEF) once clinically stable. Will recommend continue antithrombotic therapy (Eliquis) as already on anticoagulation for Afib, however before restarting follow-up with neurology as patient is being worked up for TIA/CVA Maintain statin therapy, , and strict risk-factor modification. 2. HFrEF, EF 30?35%, NYHA Class III (c) ? Chronic; Currently stable Echo 10/08/23: Severe LV systolic dysfunction, wall motion abnormalities, mild RV dilation, no significant valvular pathology. BNP 206 (mild elevation). Patient on GDMT: Entresto 49/51 mg BID, Coreg 3.125 mg BID Bumex 1 mg daily. Recommendations: Continue Entresto at current dose;If BP allows. Reassess need for Coreg given sinus bradycardia and dizziness. Evaluate volume status: adjust Bumex based on exam, weights, renal function Check daily weights, I/Os, and BMP. Keep electrolytes within normal limits, potassium above 4, magnesium above 2 Consider SGLT2 inhibitor (dapagliflozin or empagliflozin) Heart-failure education: low-sodium diet, fluid restriction if overloaded, smoking cessation. 3.Paroxysmal/Chronic Atrial Fibrillation ? Currently Rate Controlled EKG: Sinus bradycardia with occasional PVCs; patient is rate-controlled on Coreg. On Eliquis for stroke prevention. Okay Recommendations Continue anticoagulation with Eliquis 5 mg BID. Continue rate control with Coreg but monitor HR closely due to bradycardia; consider dose adjustment if symptomatic. Electrolyte optimization (K > 4.0, Mg > 2.0). Telemetry monitoring for arrhythmia burden. 4. Hypertension 5. Hyperlipidemia Monitor BP closely, especially in the setting of dizziness/bradycardia Adjust GDMT doses based on BP avoid aggressive BP lowering Continue statins 6.Type 2 diabetes mellitus dmo-fpuuvll-tgftmggis A1c 6.4. At home patient is on metformin 500 mg twice daily Continue insulin sliding scale Consider SGLT2 inhibitor for dual benefits 7.Dizziness/chest pressure symptoms Multifactorial: Bradycardia, demand ischemia, medication side effects, dehydration, CVA/TIA Patient currently is getting worked up for CVA and TIA Recommendations orthostatic vitals We will need to review medications as patient is on beta-marya Assess hydration status as patient is on Bumex, continue close monitoring telemetry 8. Ascending aortic and aortic root dilatation(mild aortic root 4.2 cm, ascending aorta 3.9 cm) Recommendations Continue BP control with Entresto and Coreg Outpatient annual echo or CT angiography Avoid extreme hypertension 9.Tobacco use/15-yaya-zcmy history Major coronary artery disease and heart failure risk factor Recommendations Patient extensively counseled regarding smoking cessation Nicotine patches as needed Patient care was discussed with attending physician Dr. Ryann Dooley MD PGY-3 I have carefully reviewed this document. Due to imperfections in the voice software, there could be grammatical errors including phonetic/typographic errors. This in no way compromises the medical care the patient is receiving Attending Provider Attestation/Addendum I reviewed the resident Dr. Becky Ferrer consultation progress note and agree with the resident findings and plan in the note above and have also edited the documentation to reflect my findings and plan. Leroy Garzon M.D. Interventional Cardiology
--- NOTE | 2025-02-02 12:53 | PD.RESPRO ---
Documentation for date of: 02/02/25 Exam Vital Signs Temp Pulse Resp BP Pulse Ox O2 Del Method 97.2 F 69 18 193/83 H 95 Room Air 02/02/25 08:00 02/02/25 08:56 02/02/25 08:55 02/02/25 08:56 02/02/25 08:00 02/02/25 08:00 Objective Labs 02/02/25 05:42 02/02/25 05:42 Labs: Laboratory Results - last 24 hr 02/01/25 02/01/25 02/01/25 15:33 15:45 17:43 WBC 5.8 RBC 4.00 L Hgb 11.7 L Hct 38.2 L MCV 96 MCH 29.3 MCHC 30.6 L RDW Std Deviation 59.7 H Plt Count 228 Neut % (Auto) 68 Lymph % (Auto) 19 [place] % (Auto) 12 Eos % (Auto) 1 Baso % (Auto) 0 Neut # (Auto) 4.0 Lymph # (Auto) 1.1 [place] # (Auto) 0.7 Eos # (Auto) 0.0 Baso # (Auto) 0.0 Immature Gran # (Auto) 0.02 H Absolute Nucleated RBC 0.00 Immature Gran % 0 Nucleated RBC % 0 PT 10.3 INR 1.0 APTT 29.3 Sodium 143 142 Potassium 5.2 H 4.8 Chloride 107 107 Carbon Dioxide 28.0 27.0 Anion Gap 8 8 BUN 22 20 Creatinine 1.6 H 1.5 H Estim Creat Clear Calc 55.8 L 59.5 L eGFR 45 L 49 L BUN/Creatinine Ratio 14 13 Glucose [address] Glu mg/dL Hemoglobin A1c Calculated Osmolality 289 286 Calcium 9.4 9.1 Corrected Calcium 9.4 9.1 Phosphorus 2.3 L Magnesium 1.9 Total Bilirubin 0.9 AST 17 ALT 15 Alkaline Phosphatase 68 Troponin I 0.103 H* 0.106 H* B-Natriuretic Peptide 260 H Total Protein 7.3 Albumin 4.9 H 4.8 Globulin 2.4 Albumin/Globulin Ratio 2.0 Triglycerides Cholesterol LDL Cholesterol, Calc HDL Cholesterol Cholesterol/HDL Ratio TSH 2.57 Free T4 1.34 Ur Collection Type Clean Catch Urine Color Lt-Yellow Urine Clarity Clear Urine pH 7.0 Ur Specific Ethel 1.018 Urine Protein Trace Urine Glucose (UA) Negative Urine Ketones Negative Urine Blood Negative Urine Nitrite Negative Urine Bilirubin Negative Urine Urobilinogen (Auto) Negative Ur Leukocyte Esterase Negative Urine RBC 2 Urine WBC 0 Ur Squamous Epith Cells < 1 Urine Bacteria None Ur Culture Indicated? Not Indicated Urine Opiates Screen Positive A Urine Fentanyl Screen Negative Ur Barbiturates Screen Negative U Amphetamin/Meth Scrn Negative U Benzodiazepines Scrn Negative U Cocaine Metab Screen Negative U Marijuana (THC) Screen Negative 02/01/25 02/02/25 22:46 05:42 WBC 4.3 RBC 3.63 L Hgb 10.8 L Hct 34.2 L MCV 94 MCH 29.8 MCHC 31.6 RDW Std Deviation 57.5 H Plt Count 191 D Neut % (Auto) 51 Lymph % (Auto) 28 [place] % (Auto) 19 H Eos % (Auto) 1 Baso % (Auto) 1 Neut # (Auto) 2.2 Lymph # (Auto) 1.2 [place] # (Auto) 0.8 Eos # (Auto) 0.1 Baso # (Auto) 0.0 Immature Gran # (Auto) 0.02 H Absolute Nucleated RBC 0.00 Immature Gran % 1 H Nucleated RBC % 0 PT INR APTT Sodium 144 Potassium 4.4 Chloride 107 Carbon Dioxide 26.8 Anion Gap 10 BUN 18 Creatinine 1.4 H Estim Creat Clear Calc 64.2 eGFR 53 L BUN/Creatinine Ratio [address] Glu mg/dL 137 H Hemoglobin A1c 6.4 H Calculated Osmolality 288 Calcium 9.0 Corrected Calcium 9.0 Phosphorus 2.7 Magnesium 1.8 Total Bilirubin 1.0 AST 14 ALT 13 Alkaline Phosphatase 60 Troponin I 0.104 H* B-Natriuretic Peptide Total Protein 6.8 Albumin 4.4 Globulin 2.4 Albumin/Globulin Ratio 1.8 Triglycerides 172 H Cholesterol 120 L LDL Cholesterol, Calc 55 HDL Cholesterol 31 L Cholesterol/HDL Ratio 3.9 L TSH Free T4 Ur Collection Type Urine Color Urine Clarity Urine pH Ur Specific Ethel Urine Protein Urine Glucose (UA) Urine Ketones Urine Blood Urine Nitrite Urine Bilirubin Urine Urobilinogen (Auto) Ur Leukocyte Esterase Urine RBC Urine WBC Ur Squamous Epith Cells Urine Bacteria Ur Culture Indicated? Urine Opiates Screen Urine Fentanyl Screen Ur Barbiturates Screen U Amphetamin/Meth Scrn U Benzodiazepines Scrn U Cocaine Metab Screen U Marijuana (THC) Screen Quality Measures Quality Measures none Assessment & Plan Assessment Current Active Medications: Generic Name Dose Route Start Last Admin Trade Name Freq PRN Reason Stop Dose Admin Acetaminophen 650 mg 02/01/25 17:23 Acetaminophen 325 Mg Tablet PO 03/03/25 17:22 Q6H PRN Fever >101.5 Apixaban 5 mg 02/01/25 21:00 02/02/25 08:57 Apixaban 2.5 Mg Tablet PO 03/04/25 09:00 5 mg BID ARTURO Administration Aspirin 81 mg 02/02/25 09:00 02/02/25 08:57 Aspirin Ec 81 Mg Tabec PO 03/04/25 08:59 81 mg DAILY ARTURO Administration Atorvastatin Calcium 40 mg 02/02/25 21:00 Atorvastatin Calcium 20 Mg Tablet PO 03/04/25 20:59 HS [facility] Dapagliflozin 10 mg 02/02/25 10:45 Dapagliflozin Propanediol 5 Mg Tablet PO 03/04/25 10:44 QAM [facility] Dextrose 25 ml 02/01/25 17:58 Dextrose 50%-Water Inj 50 Ml Syringe IV 03/03/25 17:57 Q15MIN PRN BG 50-70 responsive npo pt Dextrose 50 ml 02/01/25 17:58 Dextrose 50%-Water Inj 50 Ml Syringe IV 03/03/25 17:57 Q15MIN PRN BG <50 OR BG <70 & pt unresponsive Glucagon 1 mg 02/01/25 17:58 Glucagon Inj 1 Mg Vial IM Q15MIN PRN BG <70, and no IV access Insulin Human Lispro 0 unit 02/02/25 07:30 02/02/25 07:06 Insulin Lispro (Admelog) 1 Unit/0.01 Ml Unit SC 03/04/25 07:29 Not Given AC [facility] Protocol Ondansetron HCl 4 mg 02/01/25 18:03 Ondansetron Inj 2 Mg/Ml Inj 2 Ml IVP 03/03/25 18:02 Q4HR PRN NAUSEA OR VOMITING Sacubitril/Valsartan 2 tab 02/02/25 10:45 Sacubitril 24 Mg/Valsartan 26 Mg Tablet PO 03/04/25 10:44 BID [facility]
--- NOTE | 2025-02-02 13:21 | PC.NURSE ---
At approximately 0700, during shift change, patient stated that he will not be getting the MRI done today because he is going home. Pt is adamant on leaving AMA because he feels like he does not need anymore tests done. Pt states I only agreed to stay for observation and was told in the ED I could go home 02/02/2025, so I will go home today. Dr. Mauro and Dr. Clark were at patient bedside and educated patient on consequences of leaving AMA, patient understands and agrees that if symptoms change or worsens, patient is encouraged to return to the ED. Daughter, Brittany Hinds, at bedside and assisted patient out to private vehicle with wheelchair. Patient left at approximately 1143.
--- NOTE | 2025-02-02 14:22 | ESDS_ITS ---
<Statement entered by Surinder Ansari MD - 02/12/25 08:32> I reviewed above note and agree with findings and plans. I have also personally examined the patient with medicine team and went over assessment and plan with medical team including electrical engineering intern and resident physician. Planned Discharge Date 02/02/25 DS: Providers Provider Date of admission: 02/01/25 17:26 Primary care physician: Carloz Lebron MD Admitting Provider: Surinder Ansari MD Attending Provider on Admission: Surinder Ansari MD Consults: 02/01/25 23:28 Referral Registered Dietitian Routine Comment: 02/02/25 07:47 Consult to Cardiology Routine Comment: NSTEMI, LBBB, Elevated trops downtrended. Consulting Provider: Leroy Garzon 02/02/25 10:18 Consult to Neurology / Tele-Neurology Routine Comment: Consulting Provider: Arnold Burnett Attending Provider on DC: Surinder Ansari MD Discharging Provider: Rafiq Mauro DO DS: Diagnosis Discharge Diagnosis (1) Hypertension: Status: Acute (2) Non-ST elevation NC (NSTEMI): Status: Acute Problem List Completed Was Problem List Reviewed/Reconciled?: Yes Hospital Course Hospital Course Hospital course: Hospital Course: Patient is 74-year-old male with past medical history of hyperlipidemia, hypertension, A-fib on Coreg and Eliquis, HFrEF 30 to 35%, GDMT (Entresto, Coreg, Farxiga), etb-zsvpjpy-jjmfkqscg diabetes,2.7 x 2.5 cm early abdominal aortic aneurysm in 01/04/2023, obesity, 50 pack year former smoker, Rotator cuff tear, asthma, osteopenia with degenerative disc disease and C5-C7 and L5-S1 presented on 02/01/2025 to [facility] with with dizziness, shortness of breath, and vision changes. Earlier in the day the patient endorsed blurry vision, chest pressure, felt dizzy, and had an episode of vomiting and an episode of diarrhea. Patient has never had these symptoms before. He had no focal neurological deficits on initial examination and out of the window for TPA therefore teleneurology was not consulted. He was also found to have an elevated troponin. The patient was admitted for elevated troponins and for stroke rule out. In house neurologist is consulted as well as Pt's neon tube pumper. However, Pt repeatedly refused MRI to complete the stroke work up. Risks and benefits have been extensively explained to the patient regarding leaving before medical clearance/discharge. The patient had the opportunity to ask questions about their condition which were answered to their satisfaction; the patient is aware that they may return for further care at any time as needed and was recommended to come to the ER if their symptoms worsen. The patient left against medical advice. Problem List: #Elevated troponins #Left bundle branch block #NSTEMI type II #Dizziness secondary to #Benign positional vertigo versus #TIA versus #CVA #Hypertension Stage 2 #Heart failure EF 35-40% #MAUREEN on CKD? #Hyperlipidemia #Asthma #[id number] diabetes mellitus Discharge Instructions: - Continue taking all other home medications as prescribed - Follow-up with PCP within 1-2 weeks of discharge - If you do not have a PCP, you can follow-up at the [facility] - Return to ED if symptoms worsen The patient was seen and discussed with my attending physician Dr. Elan STEVENS and my senior resident Dr. Eduardo STEVENS PGY-2. Rafiq Mauro DO PGY-1 Time Spent with Patient Time attestation: Total time spent providing and/or coordinating discharge services: More than 50% Time spent: Greater than 30 minutes Exam Vital Signs Temp Pulse Resp BP Pulse Ox O2 Del Method 97.2 F 69 18 193/83 H 95 Room Air 02/02/25 08:00 02/02/25 08:56 02/02/25 08:55 02/02/25 08:56 02/02/25 08:00 02/02/25 08:00 Narrative Exam General: Obese man. Shouting. Non-toxic appearing. Neurologic: GCS 15. Alert and oriented x3, no gross neurological deficit, and patient able to move all 4 extremities. HEENT: Normocephalic, atraumatic, mucous membranes moist. Pupils reactive to light. Heart: Regular rate and rhythm, normal S1 and S2, no murmurs. Lungs: Clear to auscultation bilaterally with no wheezing or crackles. Abdomen: Soft, nondistended, nontender, positive bowel sounds. No guarding or rebound tenderness. Extremities: No edema. 2+ radial and dorsalis pedis pulses bilaterally. Skin: Warm. Dry. No rash or ecchymoses. Discharge Plan Plan Patient Disposition: Left Against Medical Advice Care Plan Goals: Instructions: * Continue taking all other home medications as prescribed * Follow-up with PCP within 1-2 weeks of discharge * If you do not have a PCP, then you can follow-up at the [facility] * Return to the emergency room if symptoms worsen Prescriptions/Referrals Prescriptions/Med Rec: No Action furosemide 40 MG tablet 40 mg PO QDAY Qty: 30 pravastatin 40 mg Tablet 40 mg PO QDAY benazepril 40 mg Tablet 40 mg PO QDAY albuterol sulfate [Ventolin HFA] 90 mcg/actuation Hfa Aerosol Inhaler 2 puff INHALATION Q4HR PRN (Reason: Wheezing) pantoprazole 40 mg Tablet,Delayed Release (Dr/Ec) 40 mg PO QDAY hydrocodone-acetaminophen 5-325 mg Tablet 1 tab PO Q6H PRN (Reason: Pain) zolpidem [Ambien] 10 mg Tablet 5 mg PO HS PRN (Reason: Sleep) 14 Days Qty: 0 0RF dapagliflozin propanediol 5 mg Tablet 10 mg PO QAM Qty: 60 0RF metformin 1,000 mg Tablet 500 mg PO BID 30 Days Qty: 60 0RF apixaban 5 mg tablet 5 mg PO BID Qty: 60 0RF gabapentin 300 mg capsule 300 mg PO TID Patient Comments: TAKE 1 CAPSULE BY MOUTH THREE TIMES A DAY sacubitril-valsartan [Entresto] 49-51 mg tablet 49.51 tab PO BID Patient Comments: TAKE 1 TABLET BY MOUTH TWICE A DAY FOR 45 DAYS carvedilol 3.125 mg tablet 3.125 mg PO BID Patient Comments: TAKE 1 TABLET BY MOUTH TWICE A DAY WITH FOOD FOR 90 DAYS febuxostat 80 mg tablet 80 mg PO QDAY bumetanide 1 mg tablet 1 mg PO QDAY Patient Comments: TAKE 1 TABLET BY MOUTH EVERY DAY Referrals: Carloz Lebron MD [Primary Care Provider, Family Practice] Patient/Caregiver Discharge Instructions Print Language: Palestinian Quality Discharge Quality Measures VTE prophylaxis
== END 2025-02-02 11:43 | disposition left against medical advice (07) | DRG 281 ==
LOC: SERX 18:33 → SERHOLD 18:41 → S2NX 21:54
PROVIDERS: Nurse Practitioner Family; Admitting Provider Internal Medicine; Emergency Provider Family Medicine; PCP Family Medicine; Visit Provider Internal Medicine
DX: I11.0 Hypertensive heart disease with heart failure (principal); I48.20 Chronic atrial fibrillation, unspecified; I21.A1 Myocardial infarction type 2; I44.7 Left bundle-branch block, unspecified; I50.22 Chronic systolic (congestive) heart failure; E11.9 Type 2 diabetes mellitus without complications; E86.0 Dehydration; E78.5 Hyperlipidemia, unspecified; J44.89 Other specified chronic obstructive pulmonary disease; F17.200 Nicotine dependence, unspecified, uncomplicated; Z71.6 Tobacco abuse counseling; Z53.29 Procedure and treatment not carried out because of patient's decision for other reasons; Z79.84 Long term (current) use of oral hypoglycemic drugs; Z79.01 Long term (current) use of anticoagulants; Z79.4 Long term (current) use of insulin; Z79.899 Other long term (current) drug therapy
CPT/HCPCS: 36415; 70450; 71045; 80053; 80061; 80069; 80307; 81001; 83036; 83735; 83880; 84100; 84439; 84443; 84484; 85025; 85610; 85730; 87635; 93005; 99283; J1650; A9270

== ENCOUNTER → 2025-02-13 | Outpatient (CLI) | payer OTHER, MEDICAID, SELFPAY ==
--- NOTE | 2025-02-13 10:25 | XR_ITS ---
EXAMINATION: Ultrasound abdominal aorta Date and time: February 13, 2025, 10:44 a.m. INDICATIONS: Smoking history 50 years, screening TECHNIQUE AND FINDINGS: Sonographic images abdominal aorta Transverse dimension proximal aorta 2.3 cm mid aorta 2.0 cm distal aorta 1.7 cm right iliac 1.7 cm left iliac 1.7 cm IMPRESSION: Negative for abdominal aortic aneurysm
== END | disposition home or self-care (01) ==
PROVIDERS: PCP Family Medicine; Referring Provider Family Medicine; Visit Provider Family Medicine
DX: F17.200 Nicotine dependence, unspecified, uncomplicated (principal)
CPT/HCPCS: 76770